=== PATIENT | female | born 1955 | race Hispanic/Latino ===

== ENCOUNTER → 2021-01-14 14:48 | Outpatient (CLI) | payer OTHER, SELFPAY ==
[2021-01-14 18:35] LABS: Alanine Aminotransferase 22 IU/L (<35); Albumin 3.7 g/dL (3.5-5.0); Albumin Globulin Ratio 1.2 (1.0-2.8); Alkaline Phosphatase 96 U/L (38-126); Aspartate Aminotransferase 22 IU/L (14-36); BUN Creatinine Ratio 27.4 (6-22); Bilirubin Total 0.4 mg/dL (0.2-1.3); Blood Urea Nitrogen 32 mg/dL (7-17); Calcium 9.6 mg/dL (8.4-10.2); Carbon Dioxide 25 mmol/L (22-32); Chloride 105 mmol/L (98-107); Estimated Glomerular Filt Rate 46.4 mL/min (>60); Globulin 3.1 g/dL (1.7-4.1); Glucose 145 mg/dL (80-110); HEMOLYSIS < 15 (0-50); Potassium 5.1 mmol/L (3.4-5.1); Sodium 138 mmol/L (137-145); Total Protein 6.8 g/dL (6.3-8.2)
[2021-01-14 18:40] LABS: Hemoglobin A1C% w Est Avg Glu 6.9 % (4.0-6.0)
== END ==
PROVIDERS: PCP Family Medicine; Visit Provider Family Medicine
DX: E11.9 Type 2 diabetes mellitus without complications (principal)
CPT/HCPCS: 80053; 83036

== ENCOUNTER → 2021-01-28 13:08 | Outpatient (CLI) | payer OTHER, SELFPAY ==
[2021-01-28 19:33] LABS: Alanine Aminotransferase 23 IU/L (<35); Albumin Globulin Ratio 1.3 (1.0-2.8); Alkaline Phosphatase 99 U/L (38-126); Aspartate Aminotransferase 25 IU/L (14-36); BUN Creatinine Ratio 19.6 (6-22); Bilirubin Total 0.4 mg/dL (0.2-1.3); Blood Urea Nitrogen 19 mg/dL (7-17); Calcium 9.6 mg/dL (8.4-10.2); Carbon Dioxide 28 mmol/L (22-32); Chloride 104 mmol/L (98-107); Estimated Glomerular Filt Rate 57.6 mL/min (>60); Glucose 98 mg/dL (80-110); HEMOLYSIS < 15 (0-50); Potassium 4.6 mmol/L (3.4-5.1); Sodium 139 mmol/L (137-145)
== END ==
PROVIDERS: PCP Family Medicine; Visit Provider Family Medicine
DX: I10 Essential (primary) hypertension (principal)
CPT/HCPCS: 80053

== ENCOUNTER → 2021-05-19 11:08 | Outpatient (CLI) | payer OTHER, SELFPAY ==
[2021-05-19 19:21] LABS: Add Manual Diff / Slide Review NO; Basophils Absolute Auto 100 /uL (0-100); Basophils Percent Auto 0.6 % (0-2); Eosinophils Absolute Auto 600 /uL (0-450); Eosinophils Percent Auto 6.7 % (2-4); Hematocrit 36.7 % (36-46); Hemoglobin 12.3 g/dL (12.0-16.0); Lymphocytes Absolute Auto 1600 /uL (1100-4500); Lymphocytes Percent Auto 17.8 % (25-40); Mean Corpuscular HGB Conc 33.6 % (30-36); Mean Corpuscular Hemoglobin 32.4 PG (26-34); Mean Corpuscular Volume 96.3 fL (80-100); Monocytes Absolute Auto 600 /uL (0-900); Neutrophils Absolute Auto 6300 /uL (1500-7000); Neutrophils Percent Auto 67.9 % (50-75); Platelet Count 373 X10^3/uL (150-400); Red Blood Cell Count 3.81 X10^6/uL (4.0-5.2); Red Cell Distribution Width 13.6 % (11.6-14.8); White Blood Cell Count 9.2 X10^3/uL (4.5-11.0)
[2021-05-19 19:24] LABS: Hemoglobin A1C% w Est Avg Glu 6.2 % (4.0-6.0)
[2021-05-19 19:47] LABS: Alanine Aminotransferase 19 IU/L (<35); Albumin 3.6 g/dL (3.5-5.0); Albumin Globulin Ratio 1.3 (1.0-2.8); Alkaline Phosphatase 94 U/L (38-126); Aspartate Aminotransferase 20 IU/L (14-36); BUN Creatinine Ratio 18.3 (6-22); Bilirubin Total 0.6 mg/dL (0.2-1.3); Blood Urea Nitrogen 20 mg/dL (7-17); Calcium 9.8 mg/dL (8.4-10.2); Carbon Dioxide 28 mmol/L (22-32); Chloride 103 mmol/L (98-107); Estimated Glomerular Filt Rate 50.4 mL/min (>60); Globulin 2.7 g/dL (1.7-4.1); Glucose 161 mg/dL (80-110); HEMOLYSIS < 15 (0-50); Potassium 4.6 mmol/L (3.4-5.1); Sodium 135 mmol/L (137-145); Total Protein 6.3 g/dL (6.3-8.2)
== END ==
PROVIDERS: PCP Family Medicine; Referring Provider Family Medicine; Visit Provider Family Medicine
DX: C53.9 Malignant neoplasm of cervix uteri, unspecified (principal); E11.9 Type 2 diabetes mellitus without complications
CPT/HCPCS: 80053; 83036; 85025

== ENCOUNTER → 2021-11-04 08:42 | Outpatient (CLI) | payer OTHER, SELFPAY ==
[2021-11-04 18:53] LABS: Creatinine Urine Random 120.6 mg/dL
[2021-11-04 18:57] LABS: Microalbumi Creatinin Ratio Ur 9.1 ug/mg CR (<30); Microalbumin Urine Random 1.1 mg/dL (0-1.6)
[2021-11-04 19:28] LABS: Add Manual Diff / Slide Review NO; Basophils Absolute Auto 100 /uL (0-100); Basophils Percent Auto 1.1 % (0-2); Eosinophils Absolute Auto 200 /uL (0-450); Eosinophils Percent Auto 3.2 % (2-4); Hematocrit 33.9 % (36-46); Hemoglobin 11.5 g/dL (12.0-16.0); Lymphocytes Absolute Auto 1300 /uL (1100-4500); Lymphocytes Percent Auto 17.9 % (25-40); Mean Corpuscular HGB Conc 33.8 % (30-36); Mean Corpuscular Hemoglobin 32.3 PG (26-34); Mean Corpuscular Volume 95.5 fL (80-100); Monocytes Absolute Auto 700 /uL (0-900); Monocytes Percent Auto 8.9 % (3-14); Neutrophils Absolute Auto 5200 /uL (1500-7000); Neutrophils Percent Auto 68.9 % (50-75); Platelet Count 332 X10^3/uL (150-400); Red Blood Cell Count 3.55 X10^6/uL (4.0-5.2); Red Cell Distribution Width 13.3 % (11.6-14.8); White Blood Cell Count 7.5 X10^3/uL (4.5-11.0)
[2021-11-04 19:36] LABS: Hemoglobin A1C% w Est Avg Glu 5.6 % (4.0-6.0)
[2021-11-04 19:43] LABS: Alanine Aminotransferase 23 IU/L (<35); Albumin Globulin Ratio 1.3 (1.0-2.8); Alkaline Phosphatase 114 U/L (38-126); Aspartate Aminotransferase 28 IU/L (14-36); Bilirubin Total 0.4 mg/dL (0.2-1.3); Blood Urea Nitrogen 26 mg/dL (7-17); Calcium 9.3 mg/dL (8.4-10.2); Carbon Dioxide 24 mmol/L (22-32); Chloride 103 mmol/L (98-107); Estimated Glomerular Filt Rate 59 mL/min (>60); Globulin 3.1 g/dL (1.7-4.1); Glucose 121 mg/dL (80-110); HEMOLYSIS < 15 (0-50); Potassium 4.7 mmol/L (3.4-5.1); Sodium 137 mmol/L (137-145); Total Protein 7.1 g/dL (6.3-8.2)
[2021-11-04 20:11] LABS: TSH w/ Reflex to FT4 2.13 uIU/mL (0.47-4.68)
== END ==
PROVIDERS: PCP Family Medicine; Visit Provider Family Medicine
DX: E11.22 Type 2 diabetes mellitus with diabetic chronic kidney disease (principal); I10 Essential (primary) hypertension; N18.1 Chronic kidney disease, stage 1; N18.2 Chronic kidney disease, stage 2 (mild)
CPT/HCPCS: 80053; 82043; 82570; 83036; 84443; 85025

== ENCOUNTER → 2021-12-12 10:37 | Outpatient (CLI) | payer OTHER, SELFPAY ==
[2021-12-12 20:07] LABS: HEMOLYSIS < 15 (0-50); Iron 90 ug/dL (37-170)
[2021-12-12 20:08] LABS: Add Manual Diff / Slide Review NO; Basophils Absolute Auto 100 /uL (0-100); Basophils Percent Auto 0.9 % (0-2); Eosinophils Absolute Auto 600 /uL (0-450); Eosinophils Percent Auto 7.9 % (2-4); Hematocrit 33.9 % (36-46); Hemoglobin 11.5 g/dL (12.0-16.0); Lymphocytes Absolute Auto 1500 /uL (1100-4500); Lymphocytes Percent Auto 20.1 % (25-40); Mean Corpuscular HGB Conc 33.8 % (30-36); Mean Corpuscular Hemoglobin 32.2 PG (26-34); Mean Corpuscular Volume 95.4 fL (80-100); Monocytes Absolute Auto 600 /uL (0-900); Monocytes Percent Auto 8.3 % (3-14); Neutrophils Absolute Auto 4700 /uL (1500-7000); Neutrophils Percent Auto 62.8 % (50-75); Platelet Count 316 X10^3/uL (150-400); Red Blood Cell Count 3.56 X10^6/uL (4.0-5.2); Red Cell Distribution Width 13.6 % (11.6-14.8); White Blood Cell Count 7.5 X10^3/uL (4.5-11.0)
[2021-12-12 20:19] LABS: Percent Iron Saturation 31 % (15-50); Total Iron Binding Capacity 290 ug/dL (265-497)
[2021-12-12 20:23] LABS: Transferrin 235 mg/dL (206-381)
[2021-12-12 20:25] LABS: Alanine Aminotransferase 22 IU/L (<35); Albumin 3.8 g/dL (3.5-5.0); Albumin Globulin Ratio 1.3 (1.0-2.8); Alkaline Phosphatase 107 U/L (38-126); Aspartate Aminotransferase 23 IU/L (14-36); BUN Creatinine Ratio 25.5 (6-22); Bilirubin Total 0.5 mg/dL (0.2-1.3); Blood Urea Nitrogen 26 mg/dL (7-17); Calcium 9.5 mg/dL (8.4-10.2); Carbon Dioxide 25 mmol/L (22-32); Chloride 102 mmol/L (98-107); Estimated Glomerular Filt Rate > 60 mL/min (>60); Globulin 2.9 g/dL (1.7-4.1); Glucose 167 mg/dL (80-110); HEMOLYSIS < 15 (0-50); Potassium 4.7 mmol/L (3.4-5.1); Sodium 135 mmol/L (137-145); Total Protein 6.7 g/dL (6.3-8.2)
[2021-12-12 20:26] LABS: Hemoglobin A1C% w Est Avg Glu 5.8 % (4.0-6.0)
[2021-12-12 21:19] LABS: Vitamin B12 > 1000 pg/mL (239-931)
== END ==
PROVIDERS: PCP Family Medicine; Visit Provider Family Medicine
DX: D64.9 Anemia, unspecified (principal); N18.9 Chronic kidney disease, unspecified
CPT/HCPCS: 80053; 82607; 83036; 83540; 83550; 85025

== ENCOUNTER → 2021-12-15 09:58 | Outpatient (CLI) | payer OTHER, SELFPAY ==
[2021-12-20 13:35] LABS: Fecal Immunochemical Test Negative (Negative)
== END ==
PROVIDERS: PCP Family Medicine; Visit Provider Family Medicine
DX: D64.9 Anemia, unspecified (principal); N18.9 Chronic kidney disease, unspecified
CPT/HCPCS: 82274

== ENCOUNTER → 2022-05-25 14:03 | Outpatient (CLI) | payer MEDICARE, SELFPAY ==
[2022-05-25 20:26] LABS: Alanine Aminotransferase 28 IU/L (<35); Alkaline Phosphatase 127 U/L (38-126); Aspartate Aminotransferase 26 IU/L (14-36); BUN Creatinine Ratio 23.6 (6-22); Bilirubin Total 0.5 mg/dL (0.2-1.3); Blood Urea Nitrogen 25 mg/dL (7-17); Calcium 9.7 mg/dL (8.4-10.2); Carbon Dioxide 23 mmol/L (22-32); Chloride 99 mmol/L (98-107); Estimated Glomerular Filt Rate 58 mL/min (>60); Glucose 182 mg/dL (80-110); Potassium 4.6 mmol/L (3.4-5.1); Sodium 135 mmol/L (137-145); Total Protein 7.2 g/dL (6.3-8.2)
[2022-05-25 20:28] LABS: HEMOLYSIS < 15 (0-50); Iron 86 ug/dL (37-170)
[2022-05-25 20:31] LABS: Add Manual Diff / Slide Review NO; Basophils Absolute Auto 100 /uL (0-100); Basophils Percent Auto 1.2 % (0-2); Eosinophils Absolute Auto 200 /uL (0-450); Eosinophils Percent Auto 2.6 % (2-4); Hematocrit 35.4 % (36-46); Hemoglobin 11.7 g/dL (12.0-16.0); Hemoglobin A1C% w Est Avg Glu 7.2 % (4.0-6.0); Lymphocytes Absolute Auto 1800 /uL (1100-4500); Lymphocytes Percent Auto 20.2 % (25-40); Mean Corpuscular Hemoglobin 32.1 PG (26-34); Mean Corpuscular Volume 97.1 fL (80-100); Monocytes Absolute Auto 700 /uL (0-900); Monocytes Percent Auto 7.7 % (3-14); Neutrophils Absolute Auto 6100 /uL (1500-7000); Neutrophils Percent Auto 68.3 % (50-75); Platelet Count 355 X10^3/uL (150-400); Red Blood Cell Count 3.64 X10^6/uL (4.0-5.2); Red Cell Distribution Width 13.6 % (11.6-14.8); White Blood Cell Count 8.9 X10^3/uL (4.5-11.0)
[2022-05-25 20:40] LABS: Percent Iron Saturation 30 % (15-50); Total Iron Binding Capacity 286 ug/dL (265-497); Transferrin 233 mg/dL (206-381)
[2022-05-25 21:00] LABS: TSH w/ Reflex to FT4 1.07 uIU/mL (0.47-4.68)
[2022-05-26 16:57] LABS: Albumin 4.2 g/dL (3.5-5.0); Albumin Globulin Ratio 1.4 (1.0-2.8); HEMOLYSIS < 15 (0-50)
== END ==
PROVIDERS: PCP Family Medicine; Visit Provider Family Medicine
DX: E11.9 Type 2 diabetes mellitus without complications (principal); I10 Essential (primary) hypertension
CPT/HCPCS: 80053; 83036; 83540; 83550; 84443; 85025

== ENCOUNTER 2022-08-10 13:00 | Day surgery (SDC) | payer MEDICARE, SELFPAY ==
--- NOTE | 2022-08-10 | PATH_ITS ---
[facility] Accession Number: [id number] No. of containers..05 Tissue . 01 Material submitted: . PART A: duodenum - DUODEMUN BIOPSY PART B: pylorus - PYLORUS BIOPSY PART C: esophagus, E-G Junction - GE JUNCTION BIOPSY PART D: colon - DESCENDING COLON POLYP PART E: colon - SIGMOID COLON POLYP . 01 Diagnosis: A. Duodenum, Biopsy: Duodenal mucosa with focal foveolar metaplasia, consistent with peptic duodenitis. Negative for active inflammation, features of sprue, dysplasia or malignancy. . B. Pylorus, Biopsy: Gastric antral mucosa with no diagnostic abnormality. No evidence of Helicobacter organisms on H/E stain. Negative for intestinal metaplasia. Negative for dysplasia or malignancy. . C. Gastroesophageal Junction, Biopsy: Squamocolumnar junctional mucosa with focal specialized intestinal metaplasia; please see comment. Negative for dysplasia or malignancy. . D. Descending Colon Polyp: Tubular adenoma. . E. Sigmoid Colon Polyp: Hyperplastic polyp. [facility] 08/15/2022 1557 Local . 01 Comment: C. The findings in the gastroesophageal junction biopsy would be consistent with Rollins's esophagus in the appropriate endoscopic setting. . 01 Electronically signed: . Eldon Garcia MD, PhD, Pathologist NPI- [id number] . 01 Gross description: . Part A: DUODEMUN BIOPSY: Received in formalin is 1 fragment(s) of lugo, soft tissue measuring 0.1 x 0.1 x 0.1 cm submitted entirely in 1 cassette(s) Part B: PYLORUS BIOPSY: Received in formalin is 1 fragment(s) of lugo, soft tissue measuring 0.2 x 0.2 x 0.1 cm submitted entirely in 1 cassette(s) Part C: GE JUNCTION BIOPSY: Received in formalin are 3 fragment(s) of lugo, soft tissue measuring 0.1 x 0.1 x 0.1 cm in aggregate submitted entirely in 1 cassette(s) Part D: DESCENDING COLON POLYP: Received in formalin is 1 fragment(s) of lugo, soft tissue measuring 0.2 x 0.2 x 0.2 cm submitted entirely in 1 cassette(s) Part E: SIGMOID COLON POLYP: Received in formalin are 3 fragment(s) of lugo, soft tissue measuring 0.1 x 0.1 x 0.1 cm to 0.2 x 0.2 x 0.2 cm submitted entirely in 1 cassette(s) /[facility] 08/14/2022 1916 Local . 01 Pathologist provided ICD-10: K29.80, K22.70, D12.4 . 01 CPT . 428181, 220986, 457295, 437205, 119145 Specimen Comment: A courtesy copy of this report has been sent to [facility] Performed at: 01 [facility] [address] [place] [address] Suite [facility], [place], [place] [id number] MD Vishnu Arthur MD Phone: [phone]
[2022-08-10 13:11] VITALS: BMI 48.0
[2022-08-10 13:28] VITALS: BP 145/73; PULSE 75; RESP 18; TEMP 36.4; O2SAT 98
[2022-08-10] MEDS: LACTATED RINGERS 1,000 ML 42 ML IV (13:31)
--- NOTE | 2022-08-10 14:01 | PM.HP.1 ---
History of Present Illness History of Present Illness Date Patient Seen: 08/10/22 Time Patient Seen: 14:02 Chief complaint: EGD/Colonoscopy w/poss bx Narrative: Mrs. Murphy presents today for both a colonoscopy and an EGD. Her last colonoscope she believes is about maybe 10 years ago and she denies any bleeding or changes bowel habits that are concerning. She has a personal history of endometrial cancer but no family history of colon cancer. She is also requesting an EGD because she has a low iron and anemia and she had a conversation with her assistant executive housekeeper about a trying to identify a GI source and she would like to proceed. She denies any upper GI symptoms denies heartburn GERD reflux swallowing issues or epigastric pain. [facility] Medical History (Updated 07/31/22 @ 08:44 by Alannah Dior MD) Anemia Atrial fibrillation Chronic kidney disease Chronic knee pain Fatigue History of uterine cancer Hypertension Insomnia Knee pain Morbid obesity with BMI of 50.0-59.9, adult Obstructive sleep apnea of adult Type 2 diabetes mellitus Surgical History History of hysterectomy with oophorectomy Status post delivery Status post delivery Family History Father Age: 90 Prostate cancer Esophageal cancer Heart disease Hypertension Social History household members: spouse Smoking Status: Never smoker Meds Home Medications and Allergies Home Medications Medication Instructions Recorded Confirmed Type [facility] [place] 0 dev TID ##100 01/25/16 07/27/22 Rx ferrous gluconate 324 mg (37.5 mg 324 mg PO DAILY #90 tabs 12/13/21 07/27/22 Rx iron) tablet lisinopril 20 1 tab PO DAILY #90 tabs 01/18/22 07/27/22 Rx mg-hydrochlorothiazide 12.5 mg tablet metformin 1,000 mg tablet,extended 1,000 mg PO BID #180 tabs 01/23/22 07/27/22 Rx release 24hr amlodipine 2.5 mg tablet 2.5 mg PO BEDTIME #90 tabs 02/01/22 07/27/22 Rx liraglutide 0.6 mg/0.1 mL (18 mg/3 1.8 mg (0.3 mL) SUBCUT DAILY #9 mL 06/22/22 07/27/22 Rx mL) subcutaneous pen injector (Victoza 3-Theo) insulin glargine U-300 conc 300 35 unit SUBCUT 08/10/22 History unit/mL (3 mL) subcutaneous pen (Toujeo Max U-300 SoloStar) liraglutide 0.6 mg/0.1 mL (18 mg/3 mg SUBCUT 08/10/22 History mL) subcutaneous pen injector (Victoza 3-Theo) Allergies Allergy/AdvReac Type Severity Reaction Status Date / Time No Known Drug Allergies Allergy Verified 07/27/22 11:20 Exam Vital Signs (past 8 hours): - 08/10/22 13:28 Temperature 97.6 F Pulse Rate 75 Respiratory Rate 18 Blood Pressure 145/73 H Pulse Oximetry 98 Oxygen Delivery Method Room Air Oxygen Delivery Method Room Air Const General: cooperative, healthy appearing and comfortable HENMA Head: normal to inspection Eyes General: appearance normal, both eyes and all related structures Resp Effort & Inspection: normal respiratory effort and able to speak in complete sentences GI Inspection: obesity Palpation: soft and No tender Assessment & Plan Assessment & Plan narrative: Presents today for an EGD and colonoscopy for anemia I discussed the risks benefits and alternatives including but not limited to perforation of the colon, injury to the esophagus, failure of making a diagnosis and an incomplete exam she fully understands these risks and would like to proceed.
[2022-08-10 15:45] VITALS: BP 114/60; PULSE 65; RESP 16; TEMP 36.2; O2SAT 98
--- NOTE | 2022-08-10 15:46 | PM.OP.COLON ---
Operative Date/Time/Diagnoses Date of procedure: 08/10/22 Time of procedure: 15:46 Procedure & Clinicians Study performed: EGD and colonoscopy with biopsies Same procedure as scheduled: Yes Indications: Anemia Surgeon: Terrie [place] Procedure Notes Procedure in detail: Patient was taken to the endoscopy suite and placed in a left lateral decubitus position. A time-out was performed. And conscious sedation with the anesthesia provider was induced. A bite block was placed and the EGD scope was introduced into the mouth down the esophagus and into the stomach. There was some mild looking gastritis especially in the pyloric region. The duodenum was intubated and there were a few small duodenal polyps which were biopsied. Additional biopsies were taken of the pyloric region and also a photograph and biopsies of the GE junction were taken. It did seem like there was some circumferential changes of the esophagus at the GE junction. The scope was withdrawn. Digital rectal exam was performed no masses or strictures. The colonoscope was introduced into the anal canal and advanced through to the cecum. The prep was poor a Pierson bowel prep score of 1. Photographs were obtained of the quality of prep. There were a large amount of diverticula seen in the sigmoid colon. The colonoscope go was withdrawn slowly and a descending colon polyp was identified and removed with the biopsy forceps and a sigmoid colon polyp was identified and biopsied. This area in fact did not have a typical polyp look and though the mucosa was protruding the mucosa overlying was smooth and did not have a polypoid looking quality to it. However due to the fact that it was on the opposite side of a fold I struggled and could not remove the lesion in total. I did take some very good biopsies however. Total withdrawal time was 20 minutes. Findings: divertiulosis and polyp(s) Specimen(s): other (1. Duodenum 2. Pylorus 3. GE junction 4. Descending colon polyp 5. Sigmoid colon polyp) Complications: none
[2022-08-10 16:03] VITALS: BP 125/75; PULSE 64; RESP 16; TEMP 36.8; O2SAT 97
[2022-08-10 16:12] VITALS: BP 147/67; PULSE 65; RESP 16; O2SAT 98
[2022-08-10 16:20] VITALS: BP 145/70; PULSE 77; RESP 16; TEMP 36.3; O2SAT 98
== END 2022-08-10 16:46 | disposition home or self-care (01) ==
PROVIDERS: PCP Family Medicine; Referring Provider Surgery; Visit Provider Surgery
PROC: 0DJ08ZZ Inspection of Upper Intestinal Tract, Via Natural or Artificial Opening Endoscopic (ICD-10-PCS; CPT 43235; principal; 2022-08-10 14:15)
PROC: 0DJD8ZZ Inspection of Lower Intestinal Tract, Via Natural or Artificial Opening Endoscopic (ICD-10-PCS; CPT 45378; 2022-08-10 14:15)
DX: D64.9 Anemia, unspecified (principal); K29.80 Duodenitis without bleeding; D12.2 Benign neoplasm of ascending colon; K22.70 Barrett's esophagus without dysplasia
CPT/HCPCS: 45380; 43239; J2704

== ENCOUNTER → 2022-08-30 09:11 | Outpatient (CLI) | payer MEDICARE, SELFPAY ==
[2022-08-30 19:24] LABS: Add Manual Diff / Slide Review NO; Basophils Absolute Auto 100 /uL (0-100); Basophils Percent Auto 1.1 % (0-2); Eosinophils Absolute Auto 200 /uL (0-450); Eosinophils Percent Auto 3.3 % (2-4); Hematocrit 32.7 % (36-46); Lymphocytes Absolute Auto 1500 /uL (1100-4500); Lymphocytes Percent Auto 21.5 % (25-40); Mean Corpuscular HGB Conc 33.8 % (30-36); Mean Corpuscular Hemoglobin 32.9 PG (26-34); Mean Corpuscular Volume 97.4 fL (80-100); Monocytes Absolute Auto 600 /uL (0-900); Monocytes Percent Auto 9.3 % (3-14); Neutrophils Absolute Auto 4500 /uL (1500-7000); Neutrophils Percent Auto 64.8 % (50-75); Platelet Count 334 X10^3/uL (150-400); Red Blood Cell Count 3.35 X10^6/uL (4.0-5.2); Red Cell Distribution Width 13.9 % (11.6-14.8); White Blood Cell Count 6.9 X10^3/uL (4.5-11.0)
[2022-08-30 19:50] LABS: BUN Creatinine Ratio 22.1 (6-22); Blood Urea Nitrogen 23 mg/dL (7-17); Calcium 9.3 mg/dL (8.4-10.2); Carbon Dioxide 25 mmol/L (22-32); Chloride 101 mmol/L (98-107); Cholesterol 228 mg/dL (140-199); Estimated Glomerular Filt Rate 59 mL/min (>60); Glucose 177 mg/dL (80-110); HDL Cholesterol 72 mg/dL (40-60); HEMOLYSIS < 15 (0-50); LDL Cholesterol Calculated 125 mg/dL (<100); Potassium 5.1 mmol/L (3.4-5.1); Sodium 136 mmol/L (137-145); Triglycerides 155 mg/dL (35-150)
[2022-08-30 20:53] LABS: Folate 9.1 ng/mL (2.76-20.0)
[2022-09-01 06:08] LABS: x Labcorp Estim. Avg Glu (eAG) 148 mg/dL (.); x Labcorp Hemoglobin A1c 6.8 % (4.8-5.6)
== END ==
PROVIDERS: PCP Family Medicine; Visit Provider Family Medicine
DX: E11.9 Type 2 diabetes mellitus without complications (principal); D64.9 Anemia, unspecified; I10 Essential (primary) hypertension; N18.9 Chronic kidney disease, unspecified; Z13.6 Encounter for screening for cardiovascular disorders
CPT/HCPCS: 80048; 80061; 82746; 83036; 85025

== ENCOUNTER → 2022-09-08 11:01 | Outpatient (CLI) | payer MEDICARE, SELFPAY ==
[2022-09-08 12:15] LABS: Add Manual Diff / Slide Review NO; Basophils Absolute Auto 100 /uL (0-100); Basophils Percent Auto 1.3 % (0-2); Eosinophils Absolute Auto 200 /uL (0-450); Eosinophils Percent Auto 2.8 % (2-4); Hematocrit 33.9 % (36-46); Hemoglobin 11.6 g/dL (12.0-16.0); Lymphocytes Absolute Auto 1500 /uL (1100-4500); Lymphocytes Percent Auto 19.9 % (25-40); Mean Corpuscular HGB Conc 34.1 % (30-36); Mean Corpuscular Hemoglobin 32.8 PG (26-34); Mean Corpuscular Volume 96.2 fL (80-100); Monocytes Absolute Auto 700 /uL (0-900); Monocytes Percent Auto 8.7 % (3-14); Neutrophils Absolute Auto 5200 /uL (1500-7000); Neutrophils Percent Auto 67.3 % (50-75); Platelet Count 327 X10^3/uL (150-400); Red Blood Cell Count 3.53 X10^6/uL (4.0-5.2); Red Cell Distribution Width 14.2 % (11.6-14.8); White Blood Cell Count 7.7 X10^3/uL (4.5-11.0)
[2022-09-08 12:16] LABS: Reticulocyte Count, Percent 1.9 % (1.1-2.6)
[2022-09-08 12:43] LABS: Lactate Dehydrogenase 143 U/L (120-246)
[2022-09-11 08:49] LABS: Haptoglobin 196 mg/dL (37-355)
== END ==
PROVIDERS: PCP Family Medicine; Referring Provider Family Medicine; Visit Provider Family Medicine
DX: D64.9 Anemia, unspecified (principal)
CPT/HCPCS: 36415; 83010; 83615; 85025; 85045

== ENCOUNTER → 2022-12-08 13:35 | Outpatient (CLI) | payer MEDICARE, SELFPAY ==
[2022-12-08 19:19] LABS: Creatinine Urine Random 142.5 mg/dL
[2022-12-08 19:25] LABS: Microalbumin Urine Random < 0.6 mg/dL (0-1.6)
== END ==
PROVIDERS: PCP Family Medicine; Referring Provider Family Medicine; Visit Provider Family Medicine
DX: E11.69 Type 2 diabetes mellitus with other specified complication (principal); E78.5 Hyperlipidemia, unspecified; I10 Essential (primary) hypertension; Z12.9 Encounter for screening for malignant neoplasm, site unspecified
CPT/HCPCS: 82043; 82570

== ENCOUNTER → 2023-03-27 11:08 | Outpatient (CLI) | payer MEDICARE, SELFPAY ==
[2023-03-27 19:23] LABS: Hemoglobin A1C% w Est Avg Glu 5.9 % (4.0-6.0)
[2023-03-27 19:28] LABS: BUN Creatinine Ratio 21.9 (6-22); Blood Urea Nitrogen 21 mg/dL (7-17); Calcium 10.1 mg/dL (8.4-10.2); Carbon Dioxide 27 mmol/L (22-32); Chloride 103 mmol/L (98-107); Estimated Glomerular Filt Rate > 60 mL/min (>60); Glucose 103 mg/dL (80-110); HEMOLYSIS < 15 (0-50); Potassium 4.6 mmol/L (3.4-5.1); Sodium 136 mmol/L (137-145)
[2023-03-27 19:36] LABS: Add Manual Diff / Slide Review NO; Basophils Absolute Auto 100 /uL (0-100); Eosinophils Absolute Auto 1100 /uL (0-450); Eosinophils Percent Auto 15.7 % (2-4); Hematocrit 33.4 % (36-46); Hemoglobin 11.4 g/dL (12.0-16.0); Lymphocytes Absolute Auto 1500 /uL (1100-4500); Lymphocytes Percent Auto 21.8 % (25-40); Mean Corpuscular HGB Conc 34.1 % (30-36); Mean Corpuscular Hemoglobin 32.6 PG (26-34); Mean Corpuscular Volume 95.7 fL (80-100); Monocytes Absolute Auto 700 /uL (0-900); Monocytes Percent Auto 9.2 % (3-14); Neutrophils Absolute Auto 3700 /uL (1500-7000); Neutrophils Percent Auto 52.3 % (50-75); Platelet Count 356 X10^3/uL (150-400); Red Blood Cell Count 3.49 X10^6/uL (4.0-5.2); Red Cell Distribution Width 13.7 % (11.6-14.8); White Blood Cell Count 7.1 X10^3/uL (4.5-11.0)
[2023-03-27 20:13] LABS: Appearance Urine UA CLEAR; Bilirubin Urine UA NEGATIVE (NEGATIVE); Color Urine UA YELLOW; Glucose Urine UA NEGATIVE (Negative); Ketones Urine UA NEGATIVE (NEGATIVE); Leukocyte Esterase Urine UA 1+ (NEGATIVE); Nitrite Urine UA NEGATIVE (Negative); Occult Blood Urine UA NEGATIVE (Negative); Protein Urine UA NEGATIVE (Negative); Specific Gravity Urine UA >=1.030 (1.000-1.035); Urobilinogen Urine UA 0.2 E.U./dL (0.2)
[2023-03-27 20:24] LABS: Bacteria Urine Occasional (0-1); Culture Indicated Urine Specimen Cultured; RBC Urine 0-1/HPF (0-5/HPF); Squamous Epithelial Cell Urine None Seen (0-5/HPF); WBC Urine 0-1/HPF (0-5/HPF)
== END ==
PROVIDERS: PCP Family Medicine; Visit Provider Orthopaedic Surgery
DX: Z01.818 Encounter for other preprocedural examination (principal); Z01.812 Encounter for preprocedural laboratory examination; R73.9 Hyperglycemia, unspecified; N39.0 Urinary tract infection, site not specified
CPT/HCPCS: 80048; 81001; 83036; 85025; 87086

== ENCOUNTER 2023-06-21 06:16 | Day surgery (SDC) | payer MEDICARE, SELFPAY ==
[2023-06-12 12:48] VITALS: BMI 44.6
[2023-06-21] VITALS (16 sets, daily range): BP systolic 119–154; BP diastolic 54–74; PULSE 68–94; RESP 12–21; TEMP 35.4–36.7; O2SAT 90–99; BMI 44.6
--- NOTE | 2023-06-21 06:00 | DI.RAD.S_ITS ---
PROCEDURE: XR KNEE LT 1TO2V INDICATIONS: TKA TECHNIQUE: 2 view(s) of the knee acquired. COMPARISON: [facility] ([facility]), SKIP, XR KNEE RT 3V, 01/21/2021, 11:35. FINDINGS: Bones: Patient is status post knee joint arthroplasty. Hardware components are in expected positions. Visualized bony structures are intact. Soft tissues: Overlying postoperative changes are noted. IMPRESSION: Expected post-operative appearance of a knee arthroplasty. Dictated by: J Luis Lam M.D. on 06/21/2023 at 11:35 Approved by: J Luis Lam M.D. on 06/21/2023 at 11:36
[2023-06-21] MEDS: ACETAMINOPHEN 325 MG TABLET 975 MG PO (06:53)
[2023-06-21] MEDS: CELECOXIB 200 MG CAPSULE PO (06:54)
[2023-06-21] MEDS: VANCOMYCIN 1,000 MG/200 ML PIGGYBACK 200 MG IV (06:54)
[2023-06-21] MEDS: LACTATED RINGERS 1,000 ML 42 ML IV (06:54)
--- NOTE | 2023-06-21 07:28 | SUR.OPER ---
Supine on padded OR bed. Pillow under head, arms secured on padded armboards <90 degree abduction. Safety belt across torso. Non-operative leg secured with tape over blanket over lower leg. Operative leg secured in DeMayo/Julian/Nathe positioner. Foam padded brace at thigh of operative leg.
--- NOTE | 2023-06-21 07:51 | PM.PREOP ---
Pre-operative Note Interval Note History & Physical reviewed/Exam performed by Physician: Yes Changes to H&P: No
--- NOTE | 2023-06-21 07:53 | P.OP_ITS ---
Operative Date/Time/Diagnoses Date of procedure: 06/21/23 Time of procedure: 08:00 Pre-op diagnosis: left knee OA Post-op diagnosis: same Procedure & Clinicians Procedure: Left total knee arthroplasty with Cori Same procedure as scheduled: Yes Indications: The patient has had progressively worsening left knee pain with radiographic changes consistent with arthritis. Non-operative management has failed and the patient has requested total knee replacement. The risks, benefits and alternatives to surgery were discussed with the patient prior to proceeding. Risks discussed included, but were not limited to, failure to relieve pain, stiffness, infection, nerve damage, deep venous thrombosis, pulmonary embolism, stroke, coma, heart attack, permanent paralysis and , as well as the potential need for eventual revision of the prosthetic. Surgeon: Leticia Knowles Field Laboratory Operator: Ap Dobson Anesthesia Type: General and Spinal Operative Notes Findings: Severe left knee OA, adequate stability, adequate Closure Type: primary Specimen(s): none sent Prosthetic devices, grafts, tissues, transplants, or devices: Left total knee journey BCS 2, size 5 femur, size 4 tibia, 10 mm polyethylene, patella 35 x 7-1/2 Estimated Blood Loss (mL): 250 Blood products transfused: none Tourniquet time (min): 94 Procedure in detail: The patient was seen in the pre-operative area, where the patient identified the left knee as the operative site and this was marked with my initials. The patient received pre-operative antibiotics, and was taken to the operating room and placed on the operative table in the supine position. After satisfactory anesthesia, a timekeeping supervisor out was performed. The left leg was encircled with a tourniquet about the proximal thigh, and the leg was prepared from the toes to the tourniquet with ChloroPrep in the usual fashion and draped through sterile drapes. The leg was elevated and exsanguinated with Eschmark bandage and the tourniquet inflated to 300 mmHg pressure. A PA was used during the procedure and was essential for intraoperative positioning of the knee and safe implantation of the components. They were also helpful and visualization for hemostasis. The knee was approached through an approximately 22 cm incision centered over the patella and carried into the knee through a medial parapatellar arthrotomy. Portion of the medial and lateral meniscus was resected. Soft tissue was carefully mobilized around the patella the patella was measured with a caliper. Bone was resected from the patella and the patellar height was reconstituted with up an appropriate sized patellar component. A cover was then placed on the patella. A small amount of additional medial and lateral meniscus was resected. Pins were placed in the femur for robotic assisted navigation with Cori. The tibial guide was then pinned to the tibia. The femoral and tibial side were carefully mapped and stressed and nonstress range of motion were checked. A plan was taken and developed in order to optimize stability of the knee. The appropriate size femoral guide was placed on the distal femur and finishing cuts were made. There was no evidence of notching. The anterior, posterior and chamfer cuts were then made. The posterior osteophytes and soft tissues were then removed. The posterior capsule was injected with part of a mixture of 60 ml 0.25% Marcaine mixed with 20 ml Exparel for post operative pain control. The remainder of this mixture was injected into the capsule and subcutaneous tissues during cement curing. The tibia guide was carefully adjusted and navigated. The tibia was then resected without difficulty. The rotation was assessed. The patient was placed in extension residual medial and lateral meniscus as well as any residual bone was carefully resected. [No] additional tibia was resected. Hemostasis was achieved especially posteriorly. Additional local was injected into the posterior capsule. The femoral component was trial was placed and the notch was finished. Trial tibial and femoral components were then placed and the knee placed through a range of motion. Range of motion was [0-130], with good stability throughout the range. The trials were then removed, and the tibia was finished. The bone was prepared with pulsatile lavage, and dried with a sponge. Cement was applied and the final prosthetics placed. Excess cement was removed during and after cement curing. A brief Betadine soak was performed. After confirming there was no extruded cement posteriorly, the final tibial insert was placed. The knee was copiously irrigated and the tourniquet deflated. Hemostasis was obtained with the Bovie cautery. The capsule was closed with interrupted Vicryl suture. The subcutaneous layer was closed with barbed sutures, and the skin with a running 3-0 V-Lock suture and skin taj. A marbella dressing was applied and the patient was taken to recovery having tolerated the procedure well. Complications: none Post-operative Condition: stable Disposition: Acute Care Plan for aftercare: The patient will be maintained on a standard total knee replacement protocol with weight bearing as tolerated. The patient will receive aspirin and sequential compression devices for DVT prophylaxis. The patient will be discharged home when safe for the home environment.
[2023-06-21] MEDS: CEFAZOLIN 2 GM/100 ML PREMIX 100 ML IV ×2 (08:16→17:18)
[2023-06-21] MEDS: BUPIVACAINE 0.25% (PF) 60 ML, EPINEPHrine 0.3 MG INJ (08:38)
[2023-06-21] MEDS: TRANEXAMIC ACID 1,000 MG VIAL 1000 MG INJ ×2 (08:38→10:15)
[2023-06-21] MEDS: BUPIVACAINE LIPOSOME 266 MG/20 ML VIAL INJ (08:38)
[2023-06-21] MEDS: ONDANSETRON 4 MG/2 ML INJ IV (10:37)
[2023-06-21] MEDS: ACETAMINOPHEN 325 MG TABLET 650 MG PO ×3 (12:07→23:13)
[2023-06-21] MEDS: LACTATED RINGERS 1,000 ML 100 ML IV (12:07)
[2023-06-21] MEDS: IBUPROFEN 400 MG TABLET PO ×3 (12:08→18:49)
[2023-06-21] MEDS: OXYCODONE IR 5 MG TABLET PO ×4 (12:17→23:14)
--- NOTE | 2023-06-21 16:38 | OT.IP.EVAL ---
Current Diagnoses Unilateral primary osteoarthritis, left knee (06/21/23) Surgery Performed Operation Date: 06/21/23 07:45 Actual Procedures p Total Knee Arthroplasty - Robot(Left) - Leticia Knowles MD Past Medical History (Last Reviewed 06/21/23 @ 06:47 by Mana Perez, RN) Anemia Atrial fibrillation Chronic kidney disease Chronic knee pain Endometrial cancer Fatigue History of cardioversion History of COVID-19 (2020) History of uterine cancer Hypertension Insomnia Knee pain Obesity, Class III, BMI 40-49.9 (morbid obesity) Obstructive sleep apnea of adult Osteoarthritis Type 2 diabetes mellitus Surgical History (Last Reviewed 06/21/23 @ 06:47 by Mana Perez, RN) History of esophagogastroduodenoscopy (EGD) (08/10/22) History of hysterectomy with oophorectomy Hx of colonoscopy (08/10/22) Status post delivery Status post delivery Occupational Therapy Inpatient Evaluation/Re-Eval M1 PT/OT-IP Prior Functional Status Start: 06/21/23 16:44 Freq: NEEDED Status: Active Protocol: Document 06/21/23 16:45 [facility] (Rec: 06/21/23 17:02 [facility] [id number]) Medical Review Prior Functional Status Communication Independent Mobility and Gait Able to walk without a device but limited per pt. Activities of Daily Living and IADL's Pt had pain during ADl and IADL needs. Prior Functional Level (Other details) Pt's daughter to be staying with her and her to assist her at home. Social History Household Members spouse Living Arrangements House Number of Floors (Floors) Two Floors Number of Stairs To Enter/Railing? Pt has 2 steps with left rail to get into the house and can stay on the main level. Home Environment High Toilet,Walk in Shower, Built-In Shower Seat Home Equipment Front Wheel Walker,Quad Cane, Bedside Commode,Hand Held Shower,Grab Bars In Shower Additional Social History Comment Pt has an adjustable bed. M2 OT-IP Current Condition Start: 06/21/23 16:44 Freq: Status: Active Protocol: Document 06/21/23 16:45 [facility] (Rec: 06/21/23 17:02 [facility] [id number]) Occupational Therapy Current Condition Current Condition Evaluation Date 06/21/23 Treatment Diagnosis S/P L TKA Diagnosis Onset Date 06/20/23 M3 OT- IP Subjective and Pain Start: 06/21/23 16:44 Freq: Status: Active Protocol: Document 06/21/23 16:45 [facility] (Rec: 06/21/23 17:02 [facility] [id number]) OT- Subjective Occupational Therapy Visit Type Type Initial Evaluation Visit Start Time 16:00 Visit Stop Time 16:38 Occupational Therapy Visit Comments Patient Comments Pt agreed to get up to the recliner. Patient/Caregiver Goals TO go home. OT Pain Assessment Pain When Pain Assessed During Mobility Pain Present Pain Present Pain Reported Location Right Knee Intensity 5 Scale Used Numeric (0 - 10) M4 OT- IP ADL's Start: 06/21/23 16:44 Freq: Status: Active Protocol: Document 06/21/23 16:45 [facility] (Rec: 06/21/23 17:02 [facility] [id number]) OT NUI-Ambu-Dzisamq General Evaluation Self-Feeding Ability Independent OT ADL-Grooming Comments OT Grooming Comments Not performed. OT ADL-Oral Care Comments Oral Care Comments NOt performed. OT ADL-Dressing Comments OT Dressing Comments Pt not able to reach to irene/ doff her socks and able to show pt use of property and equipment clerk and sock aid. OT ADL-Toileting Comments OT Toileting Comments At this time as pt is unsteady on her feet, best to use the BSC. Educated pt to be mindful of her knee position during ADL needs. OT ADL-Bathing Suggested use of pads, wipes and BSC and BSC next to the bed initially for safety. Comments OT Bathing Comments Not performed. Pt states has a built in seat but would probably benefit from a shower chair with arms. M5 OT- IP IADL's Start: 06/21/23 16:44 Freq: Status: Active Protocol: Document 06/21/23 16:45 [facility] (Rec: 06/21/23 17:02 [facility] [id number]) OT-Instrumental Activities of Daily Living Deficits IADL Deficits Identified Deficits Home Safety Awareness Awareness of Need for Assistance at Home Good Awareness Ability to Problem Solve Emergency Able to Problem Solve Situations Meal Preparation Meal Preparation Caregiver Provides Assist Elastic Attacher Coverstitch Elastic Attacher Coverstitch Caregiver Provides Assist M6 OT- IP Functional Cognition Start: 06/21/23 16:44 Freq: Status: Active Protocol: Document 06/21/23 16:45 [facility] (Rec: 06/21/23 17:02 [facility] [id number]) Cognitive Factors Limiting Selfcare Function Cognitive Ability Level of Alertness Alert Patient Orientation Name,Age,Birthday,Month,Date, Year,Day of Week,Place, Situation Attention Span Ability Capable of Focused Attention, Capable of Sustained Attention Ability to Follow Commands Able to Follow Multi-Step Commands Cognitive Comments Cognitive Assessment Comments Pt is intact. OT- Vision and Hearing OT- Hearing Assessment OT- Hearing Assessment WFL OT- Vision Assessment Visual Acuity Glasses For Reading Visual Attentiveness WFL Occular Pursuits WFL M7 OT- IP Mobility and Balance Start: 06/21/23 16:44 Freq: Status: Active Protocol: Document 06/21/23 16:45 [facility] (Rec: 06/21/23 17:02 [facility] [id number]) OT- Bed Mobility Assessment Supine to Sit Supine to Sit Assist Standby Assistance,Head of Bed Elevated OT-Transfer Assessment Sit to and From Stand Sit to and from Stand Moderate Assistance Transfers Transfer Ability Moderate Assistance Technique Transfer Destination Bed,Chair Transfer Technique Stand Step Pivot Devices Transfer Assistive Devices Gait Belt,Front Wheeled Walker Comments Mobility Comments Pt needing to use her hands to help lift her RLE to the edge of the bed. BP supine 130/55 , sitting 130/50 and after standing feeling a bit woozy and able to transfer to the recliner with MODA to stand and to assist for balance to get to the recliner. Pt's bp dropped to 114/48- nursing notified. OT- Gait Assessment Assistive Devices Assistive Device Gait Belt,Front Wheeled Walker OT- Balance Assessment Sitting Balance and Reactions Static Sitting Balance Ability Normal Dynamic Sitting Balance Ability Good Standing Balance and Reactions Static Standing Balance Ability Fair Dynamic Standing Balance Ability Poor M8 OT- IP Objective Assessments Start: 06/21/23 16:44 Freq: Status: Active Protocol: Document 06/21/23 16:45 [facility] (Rec: 06/21/23 17:02 [facility] [id number]) OT Strength Upper Extremity Strength Assessment Within Functional Limits M9 OT- IP Assessment and Plan Start: 06/21/23 16:44 Freq: Status: Active Protocol: Document 06/21/23 16:45 [facility] (Rec: 06/21/23 17:02 [facility] [id number]) OT Summary Assessment and Plan Potential Rehabilitation Potential Excellent Analytic Complexity at Evaluation Low Summary OT Impairments Pain,Strength,Balance, Functional Mobility,Dressing, Toileting,Shower Transfers, Activity Tolerance Progress Towards Goals Progressing Toward Goals,Slow Progress due to Pain,Slow Progress due to Medical Issues Assessment Summary Pt low complexity and main barriers are steps, pain, having some hypotension when up on her feet and weakness with her RLE at this time. Able to talk about equipment needs at home with ADL needs. Pt to go home with assist from daughter and and scheduled to go to outpt PT. Encourage pt to do her knee exercise in bed and in the chair. Goals Grooming Goal Independent Dressing Goal Minimal Assistance Toileting Goal Independent Bathing Goal Standby Assistance Toilet Transfer Goal Independent Shower Transfer Goal Standby Assistance Days to Meet Goals 7 Frequency of Treatment Frequency Of Treatment Once a Day Treatment Plan OT Treatment Plan ADL Training,Functional Mobility,Patient/Family Education,Discharge Planning Discharge Recommendations OT Discharge Recommendations Home with Assistance, Outpatient PT Home Equipment Needs shower chair with arms, LB dressing equipment Transportation Needs at Discharge Private Vehicle
[2023-06-21] MEDS: INSULIN LISPRO 100 UNIT/ML 3ML VIAL SUBCUT (17:18)
[2023-06-21] MEDS: ASPIRIN EC 81 MG TABLET PO (20:22)
[2023-06-21] MEDS: METFORMIN XR 500 MG TABLET 1000 MG PO (20:22)
[2023-06-21] MEDS: DOCUSATE 100 MG CAPSULE PO (20:22)
[2023-06-22] MEDS: IBUPROFEN 400 MG TABLET PO ×3 (00:17→08:16)
[2023-06-22] MEDS: CEFAZOLIN 2 GM/100 ML PREMIX 100 ML IV (00:18)
[2023-06-22] MEDS: OXYCODONE IR 5 MG TABLET PO ×2 (04:01→09:47)
[2023-06-22 06:00] VITALS: BP 110/50; PULSE 74; RESP 16; TEMP 36.1; O2SAT 96
[2023-06-22 07:29] LABS: Hematocrit 27.3 % (36-46); Hemoglobin 9.1 g/dL (12.0-16.0)
--- NOTE | 2023-06-22 07:37 | PM.DS.1 ---
History of Present Illness History of Present Illness Date Patient Seen: 06/22/23 Time Patient Seen: 07:37 Chief complaint: Knee pain Narrative: Left knee pain is mild. Denies fever or chills. No nausea or vomiting. Patient does have assistance at home. Patient states she was able to get up and used the restroom a couple times last night. Discharge Providers Provider Discharge Date: 06/22/23 Primary care physician: Alannah Dior MD Consults: 06/21/23 06:00 Consult to Anesthesiology Routine Comment: Consulting Provider: Anesthesiologist Reason for consultation: Regional block for post operative pain control 06/21/23 11:27 Consult to Discharge Planning Routine Comment: Consult to Occupational Therapy Evaluate & Treat Comment: Physician Instructions: Evaluate and treat Consult to Physical Therapy Evaluate & Treat Comment: Physician Instructions: postop TKA protocol Discharge provider: Ap Dobson PA-C Summary Hospital Course Discharge Diagnosis: Left knee osteoarthritis Hospital Course: Left total knee arthroplasty with Cori Same procedure as scheduled: Yes Indications: The patient has had progressively worsening left knee pain with radiographic changes consistent with arthritis. Non-operative management has failed and the patient has requested total knee replacement. The risks, benefits and alternatives to surgery were discussed with the patient prior to proceeding. Risks discussed included, but were not limited to, failure to relieve pain, stiffness, infection, nerve damage, deep venous thrombosis, pulmonary embolism, stroke, coma, heart attack, permanent paralysis and , as well as the potential need for eventual revision of the prosthetic. Surgeon: Leticia Knowles Pot Filler: Ap Dobson Anesthesia Type: General and Spinal Operative Notes Findings: Severe left knee OA, adequate stability, adequate Closure Type: primary Specimen(s): none sent Prosthetic devices, grafts, tissues, transplants, or devices: Left total knee journey BCS 2, size 5 femur, size 4 tibia, 10 mm polyethylene, patella 35 x 7-1/2 Estimated Blood Loss (mL): 250 Blood products transfused: none Tourniquet time (min): 94 Patient admitted to the hospital for left total knee arthroplasty with Cori. Patient consented to the same. Patient underwent left total knee arthroplasty yesterday June 21, 2023. Patient back in her room recovering well as a stable condition. Continue multimodal pain management, aspirin for DVT prophylaxis. Weightbearing as tolerated. Discharge home today after physical therapy if safe for home environment. Status at Discharge Cognitive/behavioral status at discharge: at baseline, confused Functional status at discharge: uses cane/walker Overall status at discharge: patient is progressing back to baseline Exam Vital Signs (past 8 hours): - 06/22/23 06:00 Temperature 96.9 F L Pulse Rate 74 Respiratory Rate 16 Blood Pressure 110/50 L Pulse Oximetry 96 Oxygen Flow Rate 0 Oxygen Delivery Method Room Air Oxygen Flow Rate 0 Narrative Exam Narrative: 67-year-old female resting comfortably in bed in no apparent distress. Marbella dressing is on and functioning. Marbella dressing is clean and dry. Motor functions intact distal left lower extremity. Sensation grossly intact to light touch left lower extremity. Const General: cooperative and comfortable Nutritional Appearance: obese (BMI 44.6) Orientation: alert Resp Effort & Inspection: normal respiratory effort and able to speak in complete sentences Objective Labs 06/22/23 07:12 Labs: Laboratory Results - last 24 hr 06/22/23 07:12 Hgb 9.1 L Hct 27.3 L PFSH Medical History History of COVID-19 (2020) Osteoarthritis Endometrial cancer History of cardioversion Obesity, Class III, BMI 40-49.9 (morbid obesity) History of uterine cancer Anemia Chronic kidney disease Chronic knee pain Knee pain Obstructive sleep apnea of adult Atrial fibrillation Fatigue Hypertension Insomnia Type 2 diabetes mellitus Surgical History History of esophagogastroduodenoscopy (EGD) (08/10/22) Hx of colonoscopy (08/10/22) History of hysterectomy with oophorectomy Status post delivery Status post delivery Family History Father Age: 91 Prostate cancer Esophageal cancer Heart disease Hypertension Social History household members: spouse Smoking Status: Former smoker alcohol intake: current additional social history: Swimming at the [employer] for exercise Discharge Assessment & Plan Assessment and Plan Assessment: Patient progressing as expected status post left total knee arthroplasty Plan of Treatment: Multimodal pain management Weight-bearing as tolerated Aspirin for DVT prophylaxis Discharge home today after physical therapy if safe for home environment Discharge Plan Discharge orders & Medications Discharge Orders: Discharge (Order); Ordered 06/22/23 Ordered By: Ap Dobson Prescriptions: New acetaminophen 325 mg Tablet 650 mg PO Q6H Qty: 60 0RF aspirin 81 mg Tablet,Delayed Release (Dr/Ec) 81 mg PO BID Qty: 60 0RF polyethylene glycol 3350 17 gram Powder In Packet 17 g PO DAILY PRN (Reason: Constipation) Qty: 14 0RF ibuprofen 400 mg Tablet 400 mg PO Q4H Qty: 60 0RF Continued (DME) pen needle, diabetic [BD Ultra-Fine Short Pen Needle] 31 gauge x 5/16 needle See Rx Instructions .Route Qty: 100 11RF Rx Instructions: BID lisinopril-hydrochlorothiazide 20-12.5 mg tablet 1 tab PO DAILY Qty: 90 1RF Rx Instructions: Take in a.m. amlodipine 2.5 mg tablet 2.5 mg PO BEDTIME Qty: 90 1RF metformin 500 mg tablet extended release 24hr 1,000 mg PO BID Qty: 360 1RF tirzepatide 7.5 mg/0.5 mL pen injector 7.5 mg SUBCUT QWEEK Qty: 2 0RF Toujeo Max U-300 SoloStar 300 unit/mL (3 mL) insulin pen 20 unit SUBCUT BEDTIME Qty: 3 0RF Rx Instructions: Pt must be seen in July for further refills Discontinued aspirin 81 mg Capsule 81 mg PO DAILY Follow up/Referrals: Alannah Dior MD [Primary Care Provider] - Leticia Knowles MD [Physician] - (2 weeks as scheduled) Diet/Activity/Treatments Diet: Diet as Tolerated Activity: Short frequent walks Skin/Wound/Dressing Care Report to your healthcare provider any signs of infection, such as:: chills, fever, night sweats, increased pain, unusual drainage and unusual redness Dressing: Keep dressing clean and dry, marbella monitor we will discontinue working after 5-7 days. May cut the tubing at the base of the dressing and be thrown away. The dressing itself should remain in place for 2 weeks. Gagandeep wrap may be removed in 24-48 hours. Visit Report/Discharge Packet Instructions: DI for Knee Replacement, DI for Prescription Opioid Use Stand Alone Forms: Patient Portal/API, Surgery Discharge Discharge Data Primary Care Provider: Alannah Dior Attending Provider: Leticia Knowles VTE Deep Vein Thrombosis/Pulmonary Embolism Present on Admission: No
[2023-06-22 08:00] VITALS: BP 143/57; PULSE 72; RESP 16; TEMP 36.1; O2SAT 100
[2023-06-22] MEDS: DOCUSATE 100 MG CAPSULE PO (08:16)
[2023-06-22] MEDS: METFORMIN XR 500 MG TABLET 1000 MG PO (08:17)
[2023-06-22] MEDS: hydroCHLOROthiazide 25 MG TABLET 12.5 MG PO (08:17)
[2023-06-22] MEDS: ASPIRIN EC 81 MG TABLET PO (08:17)
[2023-06-22 08:18] VITALS: BP 143/57; PULSE 80
[2023-06-22] MEDS: lisinopriL 20 MG TABLET PO (08:18)
--- NOTE | 2023-06-22 09:10 | PT.IIE ---
Current Diagnoses Unilateral primary osteoarthritis, left knee (06/21/23) Surgery Performed Operation Date: 06/21/23 07:45 Actual Procedures p Total Knee Arthroplasty - Robot(Left) - Leticia Knowles MD Surgical History (Last Reviewed 06/22/23 @ 07:40 by Ap Dobson PA-C) History of esophagogastroduodenoscopy (EGD) (08/10/22) History of hysterectomy with oophorectomy Hx of colonoscopy (08/10/22) Status post delivery Status post delivery Medical History (Last Reviewed 06/22/23 @ 07:40 by Ap Dobson PA-C) Anemia Atrial fibrillation Chronic kidney disease Chronic knee pain Endometrial cancer Fatigue History of cardioversion History of COVID-19 (2020) History of uterine cancer Hypertension Insomnia Knee pain Obesity, Class III, BMI 40-49.9 (morbid obesity) Obstructive sleep apnea of adult Osteoarthritis Type 2 diabetes mellitus Physical Therapy Inpatient Evaluation/Re-Eval M1 PT/OT-IP Prior Functional Status Start: 06/21/23 16:44 Freq: NEEDED Status: Discharge Protocol: Document 06/21/23 16:45 [facility] (Rec: 06/21/23 17:02 [facility] [id number]) Medical Review Prior Functional Status Communication Independent Mobility and Gait Able to walk without a device but limited per pt. Activities of Daily Living and IADL's Pt had pain during ADl and IADL needs. Prior Functional Level (Other details) Pt's daughter to be staying with her and her to assist her at home. Social History Household Members spouse Living Arrangements House Number of Floors (Floors) Two Floors Number of Stairs To Enter/Railing? Pt has 2 steps with left rail to get into the house and can stay on the main level. Home Environment High Toilet,Walk in Shower, Built-In Shower Seat Home Equipment Front Wheel Walker,Quad Cane, Bedside Commode,Hand Held Shower,Grab Bars In Shower Additional Social History Comment Pt has an adjustable bed. M1 PT/OT-IP Prior Functional Status Start: 06/22/23 13:21 Freq: NEEDED Status: Active Protocol: Document 06/22/23 09:10 AB (Rec: 06/22/23 13:35 AB [id number]) Medical Review Prior Functional Status Medical History Reviewed Yes Communication able to make needs known Mobility and Gait pt stated that she was independent with all mobilities and ambulation without AD Prior Functional Level (Other details) . Social History Household Members spouse Living Arrangements House Number of Floors (Floors) Two Floors Number of Stairs To Enter/Railing? pt stays on main level of the house has 2 steps R rail/bar ascending to enter the house Home Environment High Toilet,Walk in Shower, Built-In Shower Seat Home Equipment Front Wheel Walker,Quad Cane, Bedside Commode,Hand Held Shower,Grab Bars In Shower Additional Social History Comment spouse will be assisting pt at home M2 PT-IP Current Condition Start: 06/22/23 13:21 Freq: NEEDED Status: Active Protocol: Document 06/22/23 09:10 AB (Rec: 06/22/23 13:35 AB [id number]) Physical Therapy Current Condition Current Condition Evaluation Date 06/22/23 Treatment Diagnosis s/p L TKA; difficulty in walking Onset Date 06/21/23 M3 PT-IP Subjective Start: 06/22/23 13:21 Freq: NEEDED Status: Active Protocol: Document 06/22/23 09:10 AB (Rec: 06/22/23 13:35 AB [id number]) Subjective Physical Therapy Visit Type Type Initial Evaluation Visit Start Time 09:10 Visit Stop Time 10:15 Number of DRYING ROOM SUPERVISOR Visits 65 Physical Therapy Visit Comments Patient Comments pt is agreeable to do PT Therapy Pain Assessment Pain When Pain Assessed At Rest Pain Present Pain Present Pain Reported Location Left Knee Intensity 5 Scale Used Numeric (0 - 10) Pain Management Techniques Distraction,Modification of Treatment,Re-positioning, Timing of Activity with Medications M4 PT-IP Mobility and Gait Start: 06/22/23 13:21 Freq: NEEDED Status: Active Protocol: Document 06/22/23 09:10 AB (Rec: 06/22/23 13:35 AB [id number]) PT-Bed Mobility Assessment Supine to Sit Supine to Sit Standby Assistance Sit to Supine Sit to Supine Standby Assistance PT-Transfer Assessment Sit to and From Stand Sit to and from Stand Contact Guard Assistance, Minimal Assistance,1 Person Assistance,Use of Upper Extremities Equipment Transfer Assistive Device Gait Belt,Front Wheeled Walker Orthotic/Prosthetic Devices or Brace: No Transfers Transfer Destination Bed,Chair Transfer Technique ambulated Transfer Ability Level of Assist Standby Assistance,Contact Guard Assistance,1 Person Assistance,Use of Upper Extremities Comments Mobility Comments pt sitting on the chair and agreeable to do PT. obtained PLOF and home set up from pt. pt completed sit to stand from the chair CGA with heavy UE use to push and unsteady initial standing balance. instructed pt to sit back on bed. educated on sit<>stand techniques. pt completed sit to stand again CGA, ambulated in room using FWW CGA and cues for L quads activation. pt sat on EOB. demonstrated sit<> supine SBA. spouse arrived. caregiver training conducted. spouse educated on use of safety belt and how to assist pt. spouse was able to put safety belt on pt and assisted pt with sit to stand but pt unable even after 2 attempts. PT assisted and pt required min A. educated pt again on sit to stand techniques and to focus on LE pushing than UE pushing from armrest. pt completed sit <>stand again with spouse assisting and PT cueing and completed CGA. pt ambulated in the hallway ~ 75 ft using fWW CGA with spouse assisting. pt sat on the chair. educated on stair climbing techniques. pt completed sit to stand from the w/c CGA with spouse assisting and completed up/ down stairs using R rail+quad cane CGA to min A and spouse was able to assist. assisted pt back to her room. call light and table placed within reach. Left pt with nurse. Gait Assessment Gait Gait Assistance Required: Standby Assistance,Contact Guard Assist Distance (Feet) 75 Able to Maintain Weight Bearing Status Yes During Gait Assistive Devices Assistive Device Gait Belt,Front Wheeled Walker Orthotic/Prosthetic Devices or Brace: No Gait Deviations General Gait Pattern Antalgic,Decreased Stride Length,Decreased Feet Clearance Factors Limiting Gait Function Factors Limiting Gait Function Decreased Activity Tolerance, Decreased Strength,Difficulty Following Directions,Limited Range of Motion,Pain,Poor Balance,Poor Safety Awareness Stair Climbing Assessment Evaluation Level of Assist On Stairs Contact Guard Assistance, Minimal Assistance Devices Stair Climbing Assistive Devices Small Base Quad Cane,Right Railing Technique/Endurance Stair Climbing Direction Ascend and Descend Stair Climbing Technique Step to Step Number of Steps Climbed 3 Query Text: Stair Climbing Set # Repetitions (reps) 1 PT-Balance Assessment Sitting Balance and Reactions Static Sitting Balance Ability Normal Dynamic Sitting Balance Ability Good Standing Balance and Reactions Static Standing Balance Ability Fair Dynamic Standing Balance Ability Fair Device Used FWW M5 PT-IP Objective Assessments Start: 06/22/23 13:21 Freq: NEEDED Status: Active Protocol: Document 06/22/23 09:10 AB (Rec: 06/22/23 13:35 AB [id number]) Orientation Orientation/Cognition Level of Alertness Alert Orientation Name,Place,Situation Language Function Ability No Deficits Noted Safety Awareness Decreased Safety Awareness Memory Description No Deficits Noted Gross Range of Motion Lower Extremity ROM Assessment Right Impaired Impairments R knee flexion: ~ 70 deg Strength Lower Extremity Strength Assessment Right Impaired Hip 3-/5 Knee 3+/5 Coordination Assessment Gross Coordination Gross Coordination WNL Sensation Assessment Sensation Gross Sensation WNL Muscle Tone Muscle Tone WNL Yes M6 PT-IP Treatment Start: 06/22/23 13:21 Freq: NEEDED Status: Active Protocol: Document 06/22/23 09:10 AB (Rec: 06/22/23 13:35 AB [id number]) Physical Therapy Treatment Education Education Provided Precautions,Weight Bearing Status,Safety M7 PT-IP Assessment and Plan Start: 06/22/23 13:21 Freq: NEEDED Status: Active Protocol: Document 06/22/23 09:10 AB (Rec: 06/22/23 13:35 AB [id number]) PT Summary Assessment and Plan Potential Rehabilitation Potential Good Status of Condition at Evaluation Stable Summary Impairments Pain,ROM,Strength,Balance, Coordination,Sensation,Tone, Cognition,Bed Mobility, Transfers,Gait,Activity Tolerance Assessment Summary pt is a 67 y/o F s/p L TKA POD 1. pt is WBAT on LLE. pt requiring CGA to min A with mobility using fWW. caregiver training conducted and spouse was able to safely assist pt with mobility. pt plans to go home with spouse assisting and has outpt PT set up. pt may go home when medically stable. Goals Bed Mobility Goal Independent Transfer Goal Independent,Front Wheeled Walker Gait Goal Independent,Front Wheel Walker Gait Distance 200 Other Goals up/down 2 steps R rail/bar + quad cane SBA Days to Meet Goals 5 Frequency of Treatment Frequency Of Treatment Twice a Day Treatment Plan Physical Therapy Treatment Plan Bed Mobility Training,Transfer Training,Gait Training, Therapeutic Exercise,Balance Retraining,Post Op Education, Discharge Planning,Hot or Cold Pack,Neuromuscular Re-ed, Coordination Retraining,Manual Therapy Weight Bearing Status Weight Bearing Status Weight Bear as Tolerated Allowed Weight Bearing Amount (enter % LLE WBAT or #) (%) Recommendations To Nursing Amount of Assist Needed 1 Person Assist Discharge Recommendations PT Discharge Recommendations Home with Assistance, Outpatient PT Transportation Needs at Discharge Private Vehicle
--- NOTE | 2023-06-22 10:13 | OT.IP.TRT ---
Current Diagnoses Unilateral primary osteoarthritis, left knee (06/21/23) Surgery Performed Operation Date: 06/21/23 07:45 Actual Procedures p Total Knee Arthroplasty - Robot(Left) - Leticia Knowles MD Occupational Therapy Treatment Note M2 OT-IP Current Condition Start: 06/21/23 16:44 Freq: Status: Active Protocol: Document 06/21/23 16:45 [facility] (Rec: 06/21/23 17:02 [facility] [id number]) Occupational Therapy Current Condition Current Condition Evaluation Date 06/21/23 Treatment Diagnosis S/P L TKA Diagnosis Onset Date 06/20/23 M3 OT- IP Subjective and Pain Start: 06/21/23 16:44 Freq: Status: Active Protocol: Document 06/22/23 11:30 [facility] (Rec: 06/22/23 11:34 [facility] [id number]) OT- Subjective Occupational Therapy Visit Type Type Treatment Note Visit Start Time 10:05 Visit Stop Time 10:13 Occupational Therapy Visit Comments Patient Comments Able to talk to pt to finalize OT needs for ADL's. Patient/Caregiver Goals TO go home. M4 OT- IP ADL's Start: 06/21/23 16:44 Freq: Status: Active Protocol: Document 06/22/23 11:30 [facility] (Rec: 06/22/23 11:34 [facility] [id number]) OT ADL-Dressing General Eval Lower Body Dressing Ability Independent Comments OT Dressing Comments Pt states able to dress herself and be mindful of her knee positioning needs. OT ADL-Toileting Comments OT Toileting Comments Pt states has had no difficulty to get into and out of the bathroom. OT ADL-Bathing Comments OT Bathing Comments Pt's to be able to assist her and went over again to cover the dressing prior to showering, otherwise can sponge off. M5 OT- IP IADL's Start: 06/21/23 16:44 Freq: Status: Active Protocol: Document 06/21/23 16:45 [facility] (Rec: 06/21/23 17:02 [facility] [id number]) OT-Instrumental Activities of Daily Living Deficits IADL Deficits Identified Deficits Home Safety Awareness Awareness of Need for Assistance at Home Good Awareness Ability to Problem Solve Emergency Able to Problem Solve Situations Meal Preparation Meal Preparation Caregiver Provides Assist Meat Boner Meat Boner Caregiver Provides Assist M6 OT- IP Functional Cognition Start: 02/15/24 16:44 Freq: Status: Active Protocol: Document 06/21/23 16:45 [facility] (Rec: 06/21/23 17:02 [facility] [id number]) Cognitive Factors Limiting Selfcare Function Cognitive Ability Level of Alertness Alert Patient Orientation Name,Age,Birthday,Month,Date, Year,Day of Week,Place, Situation Attention Span Ability Capable of Focused Attention, Capable of Sustained Attention Ability to Follow Commands Able to Follow Multi-Step Commands Cognitive Comments Cognitive Assessment Comments Pt is intact. OT- Vision and Hearing OT- Hearing Assessment OT- Hearing Assessment WFL OT- Vision Assessment Visual Acuity Glasses For Reading Visual Attentiveness WFL Occular Pursuits WFL Freq: Status: Active Protocol: Document 06/22/23 11:30 [facility] (Rec: 06/22/23 11:34 [facility] [id number]) OT Summary Assessment and Plan Potential Rehabilitation Potential Excellent Analytic Complexity at Evaluation Low Summary OT Impairments Pain,Strength,Balance, Functional Mobility,Dressing, Toileting,Shower Transfers, Activity Tolerance Progress Towards Goals Progressing Toward Goals Assessment Summary Able to finalize all OT suggestions and needs for pt . Pt to go home with her to assist and have outpt PT. Goals Grooming Goal Independent Dressing Goal Independent Toileting Goal Independent Bathing Goal Standby Assistance Toilet Transfer Goal Independent Shower Transfer Goal Standby Assistance Days to Meet Goals 3 Frequency of Treatment Frequency Of Treatment Once a Day Treatment Plan OT Treatment Plan ADL Training,Functional Mobility,Patient/Family Education,Discharge Planning Discharge Recommendations OT Discharge Recommendations Home with Assistance, Outpatient PT Home Equipment Needs shower chair with arms Transportation Needs at Discharge Private Vehicle
--- NOTE | 2023-06-22 10:39 | CM.DANOTE ---
Brief DCP Assessment Note Pt is a 67yo F here following scheduled left knee surg with Dr. Knowles on 06.21.23 PCP Alannah Dior [facility] EXTERIOR INTERIOR SPECIALIST reviewed EMR. Per OT, rec home with assistance. Spouse and dtr at home to support. Per chart review, spouse and pt live on [address] ([address] [phone]) independently. Pt has a walker/cane/bedside commode/additional equip at home. Per RN, doing well. RN completing priority boarding pass for pt. Pt and spouse leave as this EXTERIOR INTERIOR SPECIALIST went to complete full assessment. Pt was standing/ambulating in room. No identified CM needs. Plan: home with spouse/dtr today [place]. No identified CM needs. CM team will follow as needed. FRANKLIN Nuñez Discharge Planning/Care Management CM Discharge Assessment Start: 06/22/23 10:37 Freq: Status: Active Protocol: Document 06/22/23 10:37 SL (Rec: 06/22/23 10:39 [id number]) Discharge Planning Assessment Assigned Mapper FRANKLIN Aguirre DPOA/Assigned Designee Name leif Brock Contact Information [phone] Advance Directives? No Advance Directives on File No History Provided By Patient,Medical Record Prior Living Arrangements House Household Members spouse Independent with ADL's Yes Is patient alert and oriented? Yes DME Already Rented / Owned Elevated Toilet Seat,FWW / Walker,Cane,Bedside Commode Barriers to Discharge No Discharge Plan Foster Care Transportation Arrangement family [place] and [place] Referrals Initiated None needed Whiteboard Updated in Patient Room with No name and ext. # of Mapper Review Status In Process Next Review Type Continued Stay Review Pre-Anesthesia Assessment Start: 06/12/23 12:48 Freq: Status: Complete Protocol: Document 06/12/23 12:48 CAB (Rec: 06/12/23 13:41 CAB [id number]) Pre-Anesthesia Assessment Preferred Name Huyen Patient Information Reviewed Via Phone Assessment Assessment Completed With Patient Diagnostic Results BMP/CMP,CBC,EKG Comment Labs @ [facility] 03/27/23, outside EKG scanned Primary Care Provider Alannah Dior Seen Specialist in Last 12 Months Yes Specialist Seen Oncologist,Opthamologist/ Credit Collections Manager,Orthopedist Primary Language [place] Welding Machine Tender Required No Height 162.56 cm Weight 117.934 kg Body Mass Index (BMI) 44.6 Hearing Ability Normal Visual Assist Magnifying Glass Dentition Type Teeth, Natural Present Barriers to Learning None Hx Anesthesia Reactions No: Pt denies DOMINGO, home study' positive per sleep visit @ 10/30/18 Hx Family Anesthesia Reaction No Hx Malignant Hyperthermia No Hx Blood Transfusions No Hx Blood Transfusion Reaction No Anesthesia Review Requested No Business Development Manager No alcohol intake current alcohol intake frequency a few times a month Smoking Status Former smoker how long ago did patient quit smoking Quit age 35 Comment Edible marijuana Pain Present Pain Reported Musculoskeletal Symptoms Abnormal Gait,Difficulty Walking,Joint Pain History of Falling (Recent or History of No ) Patient is completely paralyzed or No completely immobile Mental Status Oriented to own ability Is patient on oxygen? No Does patient have CHE/SOB No Hx Sleep Apnea Yes: Pt denies CPAP/BIPAP use not prescribed Currently Taking a Beta Judit No Hx Chest Pain No Hx SOB No Hx Syncope or Dizziness No Anti-Coagulant Therapy Yes: ASA 81mg -pt states she is holding, does not want to check w/PCP Has a Commercial Portfolio Manager No: No longer follows with [facility] Cardiac Testing No Hx Pacemaker/ICD No Pacemaker Rep Required? No Cardiac Clearance Received Not Applicable Comment Hx of PAF, cardioversion Diet Type At Home Regular Dysphagia No Gastrointestinal Symptoms None Chronic UTI No Bladder Pattern Frequency Urinary Catheter Present No Hx Urinary Self Catheterization No Diabetes Yes HgbA1C 5.9 Date 03/27/23 Patient No Lactating No Hx Drug Resistant Organism No Presence of External or Internal Medical No Devices Received a COVID vaccine? Yes Received all doses? Yes Marital Status Lives With spouse Current Living Arrangements House Number of Floors (Floors) Two Floors Support System Child/Children,Friend(s), Spouse Comment Daughter will stay w/pt to assist at DC Does the Patient Have Assistance After Yes Surgery Patient Discharge Plan Description Return Home Comment Pt advised overnight length of stay per surgeon Additional comment Pt lives on [facility] Feels Safe in Current Environment Yes Been Physically Hurt or Threatened By a No Person in Current Environment Do you have thoughts of harming yourself None or others? Are you currently considering suicide? No Do you have a plan to hurt yourself or No Plan others? Do You Have Any Spiritual Beliefs That No May Affect Your HC Choices? Do You Have Any Cultural Practices That No May Affect Your HC Choices? Comment Scientology Who Can We Speak to About Patient's Care Family, friends Identifying Code for Release of Patient Declines to issue Information Health Care Proxy/Next of Kin Bret () Health Care Proxy Emergency Contact Name Irma (daughter) Emergency Contact Advance Directives? No Advance Directives on File No Power of Email Production Specialist No PAC Instructions Diabetes instructions,Do not shave/clip surgical site, Durable medical equipment, Medications to take/avoid, Nasal antibiotic,No ETOH/ petroleum product on skin DOS, NPO,Pre-surgical wash,Sensory aids,Sturdy shoes/comfortable clothes,Do not bring valuables and remove jewelry
== END 2023-06-22 10:45 | disposition home or self-care (01) ==
LOC: OR 06:16 → AC 06:21
PROVIDERS: PCP Family Medicine; Referring Provider Orthopaedic Surgery; Visit Provider Orthopaedic Surgery
PROC: 0SRD0JZ Replacement of Left Knee Joint with Synthetic Substitute, Open Approach (ICD-10-PCS; CPT 27447; principal; 2023-06-21 07:45)
DX: M17.12 Unilateral primary osteoarthritis, left knee (principal); M25.762 Osteophyte, left knee
CPT/HCPCS: 27447; 36415; 73560; 82962; 85014; 85018; 97161; 97165; 97530; 97535; C1776; C9290; J0171; J0690; J1815; J2250; J2405; J2704; J3010

== ENCOUNTER → 2023-08-23 11:35 | Outpatient (CLI) | payer MEDICARE, SELFPAY ==
[2023-06-21 11:33] VITALS: BMI 44.6
[2023-08-23 18:57] LABS: Add Manual Diff / Slide Review NO; Basophils Absolute Auto 100 /uL (0-100); Basophils Percent Auto 1.2 % (0-2); Eosinophils Absolute Auto 100 /uL (0-450); Hematocrit 32.7 % (36-46); Hemoglobin 10.8 g/dL (12.0-16.0); Lymphocytes Absolute Auto 1400 /uL (1100-4500); Lymphocytes Percent Auto 19.4 % (25-40); Mean Corpuscular HGB Conc 32.9 % (30-36); Mean Corpuscular Hemoglobin 32.4 PG (26-34); Mean Corpuscular Volume 98.4 fL (80-100); Monocytes Absolute Auto 600 /uL (0-900); Neutrophils Absolute Auto 5100 /uL (1500-7000); Neutrophils Percent Auto 69.4 % (50-75); Platelet Count 376 X10^3/uL (150-400); Red Blood Cell Count 3.32 X10^6/uL (4.0-5.2); Red Cell Distribution Width 14.5 % (11.6-14.8); White Blood Cell Count 7.4 X10^3/uL (4.5-11.0)
== END ==
PROVIDERS: PCP Family Medicine; Visit Provider Orthopaedic Surgery
DX: Z01.812 Encounter for preprocedural laboratory examination (principal)
CPT/HCPCS: 85025

== ENCOUNTER 2023-08-28 06:26 | Day surgery (SDC) | payer MEDICARE, SELFPAY ==
[2023-06-21 11:33] VITALS: BMI 44.6
[2023-08-14 15:15] VITALS: BMI 45.3
[2023-08-28] VITALS (13 sets, daily range): BP systolic 116–145; BP diastolic 54–90; PULSE 71–79; RESP 12–19; TEMP 35.9–36.7; O2SAT 94–98; BMI 45.3
[2023-08-28] MEDS: ACETAMINOPHEN 325 MG TABLET 975 MG PO (06:45)
[2023-08-28] MEDS: CELECOXIB 200 MG CAPSULE PO (06:46)
[2023-08-28] MEDS: VANCOMYCIN 1,000 MG/200 ML PIGGYBACK 200 MG IV (07:10)
--- NOTE | 2023-08-28 07:11 | DI.RAD.S_ITS ---
PROCEDURE: XR KNEE RT 1TO2V INDICATIONS: total right knee arthroplasty TECHNIQUE: 2 view(s) of the knee acquired. COMPARISON: [facility], CR, XR KNEE LT 1TO2V, 06/21/2023, 10:38. [facility] ([facility] CR, XR KNEE RT 3V, 01/21/2021, 11:35. FINDINGS: Bones: Patient is status post knee joint arthroplasty. Hardware components are in expected positions. Visualized bony structures are intact. Soft tissues: Overlying postoperative changes are noted. IMPRESSION: Expected post-operative appearance of a knee arthroplasty. Dictated by: Ovi Townsend M.D. on 08/28/2023 at 13:47 Approved by: Ovi Townsend M.D. on 08/28/2023 at 13:47
[2023-08-28] MEDS: LACTATED RINGERS 1,000 ML 42 ML IV ×2 (07:18→09:40)
--- NOTE | 2023-08-28 07:40 | P.OP_ITS ---
Operative Date/Time/Diagnoses Date of procedure: 08/28/23 Time of procedure: 08:00 Pre-op diagnosis: RIGHT KNEE OA Post-op diagnosis: same Procedure & Clinicians Procedure: Right total knee arthroplasty Same procedure as scheduled: Yes Indications: The patient has had progressively worsening right knee pain with radiographic changes consistent with arthritis. Non-operative management has failed and the patient has requested total knee replacement. The risks, benefits and alternatives to surgery were discussed with the patient prior to proceeding. Risks discussed included, but were not limited to, failure to relieve pain, stiffness, infection, nerve damage, deep venous thrombosis, pulmonary embolism, stroke, coma, heart attack, permanent paralysis and , as well as the potential need for eventual revision of the prosthetic. Surgeon: Leticia Knowles Alarm Investigator: Ap Dobson Anesthesia Type: General and Peripheral nerve block Operative Notes Findings: Severe right knee osteoarthritis, adequate stability Closure Type: primary Specimen(s): none sent Prosthetic devices, grafts, tissues, transplants, or devices: Knowles and nephew [facility] BC 2 size 5 femur, size 4 tibia, 35 by 7.5 patella, +10 poly Estimated Blood Loss (mL): 250 Blood products transfused: none Tourniquet time (min): 79 Procedure in detail: The patient was seen in the pre-operative area, where the patient identified the right knee as the operative site and this was marked with my initials. The patient received pre-operative antibiotics, and was taken to the operating room and placed on the operative table in the supine position. After satisfactory anesthesia, a night time babysitter out was performed. The right leg was encircled with a tourniquet about the proximal thigh, and the leg was prepared from the toes to the tourniquet with ChloroPrep in the usual fashion and draped through sterile drapes. The leg was elevated and exsanguinated with Eschmark bandage and the tourniquet inflated to [250] mmHg pressure. A PA was used during the procedure and was essential for intraoperative retraction and safe implantation of the components. The knee was approached through an approximately 20 cm incision centered over the patella and carried into the knee through a medial parapatellar arthrotomy. Portion of the medial and lateral meniscus was resected. Soft tissue was carefully mobilized around the patella the patella was measured with a caliper. Bone was resected from the patella and the patellar height was reconstituted with an appropriate sized patellar component. A cover was then placed on the patella. A small amount of additional medial and lateral meniscus was resected. Cori pins were placed in the femur and the tibial guide was attached and pinned for navigation. The knee was meticulously mapped and placed through a range of motion and stressed and non stressed curves were taken. A plan was developed to optimize range of motion and stability and alignment. The robotic assisted bur was used to remove the distal femur for the distal femoral cut. It looked like an appropriate distal femoral cut and the cut was made without difficulty. The rotation was assessed and the appropriate size femoral guide was placed on the distal femur and finishing cuts were made. There was no evidence of notching. The anterior, posterior and chamfer cuts were then made. The posterior ost eophytes and soft tissues were then removed. The posterior capsule was injected with part of a mixture of 60 ml 0.25% Marcaine mixed with 266 mg Exparel for post operative pain control. The remainder of this mixture was injected into the capsule and subcutaneous tissues during cement curing. The tibia guide was meticulously navigated in order to optimize the tibial cut. The proximal tibial cut was made. It appeared to be an adequate cut. The patient was placed in extension residual medial and lateral meniscus as well as any residual bone was carefully resected. [No] additional tibia was resected. Hemostasis was achieved especially posteriorly. Additional local was injected into the posterior capsule. The extension gap was assessed. The femoral component was trial was placed and the notch was finished. Trial tibial and femoral components were then placed and the knee placed through a range of motion. Range of motion was [0-130], with good stability throughout the range. The trials were then removed, and the tibia was finished. The bone was prepared with pulsatile lavage, and dried with a sponge. Cement was applied and the final prosthetics placed. Excess cement was removed during and after cement curing. A brief Betadine soak was performed. After confirming there was no extruded cement posteriorly, the final tibial insert was placed. The knee was copiously irrigated and the tourniquet deflated. Hemostasis was obtained with the Bovie cautery. The capsule was closed with interrupted # 1 suture. The subcutaneous layer was closed with barbed sutures, and the skin with a running 3-0 V-Lock suture and skin taj. A marbella dressing was applied and the patient was taken to recovery having tolerated the procedure well. Complications: none Post-operative Condition: stable Disposition: Acute Care Plan for aftercare: The patient will be maintained on a standard total knee replacement protocol with weight bearing as tolerated. The patient will receive aspirin and sequential compression devices for DVT prophylaxis. The patient will be discharged home when safe for the home environment.
--- NOTE | 2023-08-28 07:40 | PM.PREOP ---
Pre-operative Note Interval Note History & Physical reviewed/Exam performed by Physician: Yes Changes to H&P: No
[2023-08-28] MEDS: CEFAZOLIN VIAL 3 GM in SODIUM CHLORIDE 0.9% 100 ML IV ×3 (08:12→23:00)
[2023-08-28] MEDS: TRANEXAMIC ACID 1,000 MG VIAL 1000 MG INJ ×2 (08:15→09:42)
--- NOTE | 2023-08-28 08:25 | SUR.OPER ---
Supine on padded OR bed. Pillow under head, arms secured on padded armboards <90 degree abduction. Safety belt across torso. Non-operative leg secured with tape over blanket over lower leg. Operative leg secured in Julian positioner. Foam padded brace at thigh of operative leg.
[2023-08-28] MEDS: BUPIVACAINE LIPOSOME 266 MG/20 ML VIAL INJ (08:29)
[2023-08-28] MEDS: BUPIVACAINE 0.25% (PF) 60 ML, EPINEPHrine 0.3 MG INJ (08:29)
[2023-08-28] MEDS: ONDANSETRON 4 MG/2 ML INJ IV (10:29)
--- NOTE | 2023-08-28 11:50 | OT.IPNOTE ---
Pt here for s/p R TKA and just recently had L TKA 06/21/23 and had OT eval and treat at that time. Pt states has all ADl equipment needs, FWW, now has a lift chair and will have assist from her at home. Pt not wanting OT eval and has good understanding for ADL needs. Therefore discharge pt for OT services.
[2023-08-28] MEDS: ACETAMINOPHEN 325 MG TABLET 650 MG PO ×3 (12:48→22:58)
[2023-08-28] MEDS: IBUPROFEN 400 MG TABLET PO ×4 (12:49→22:57)
[2023-08-28] MEDS: OXYCODONE IR 10 MG TABLET PO ×2 (13:48→17:23)
[2023-08-28] MEDS: LACTATED RINGERS 1,000 ML 100 ML IV (13:49)
--- NOTE | 2023-08-28 14:00 | PT.IIE ---
Current Diagnoses Bilateral primary osteoarthritis of knee (08/28/23) Surgery Performed Operation Date: 08/28/23 07:45 Actual Procedures p Total Knee Arthroplasty - Robot(Right) - Leticia Knowles MD Surgical History (Last Updated 08/14/23 @ 15:21 by Alexandrea Levine, RN) History of esophagogastroduodenoscopy (EGD) (08/10/22) History of hysterectomy with oophorectomy History of total left knee replacement (06/21/23) Hx of colonoscopy (08/10/22) Status post delivery Status post delivery Medical History (Last Reviewed 06/22/23 @ 07:40 by Ap Dobson PA-C) Anemia Atrial fibrillation Chronic kidney disease Chronic knee pain Endometrial cancer Fatigue History of cardioversion History of COVID-19 (2020) History of uterine cancer Hypertension Insomnia Knee pain Obesity, Class III, BMI 40-49.9 (morbid obesity) Obstructive sleep apnea of adult Osteoarthritis Type 2 diabetes mellitus Physical Therapy Inpatient Evaluation/Re-Eval M1 PT/OT-IP Prior Functional Status Start: 08/28/23 14:47 Freq: NEEDED Status: Active Protocol: Document 08/28/23 14:00 AB (Rec: 08/28/23 14:59 AB [id number]) Medical Review Prior Functional Status Medical History Reviewed Yes Communication able to make needs known Mobility and Gait pt stated that she was independent with all mobilities and ambulation without AD Social History Household Members spouse Living Arrangements House Number of Floors (Floors) Two Floors Number of Stairs To Enter/Railing? pt will stay on main level of the house has 3 steps R grab bar by edge of door to enter the house Home Environment High Toilet,Walk in Shower, Built-In Shower Seat Home Equipment Front Wheel Walker,Quad Cane, Bedside Commode,Hand Held Shower,Lift Recliner,Grab Bars In Shower Additional Social History Comment pt stated that she will sleep on her lift chair M2 PT-IP Current Condition Start: 08/28/23 14:47 Freq: NEEDED Status: Active Protocol: Document 08/28/23 14:00 AB (Rec: 08/28/23 14:59 AB [id number]) Physical Therapy Current Condition Current Condition Evaluation Date 08/28/23 Treatment Diagnosis s/p R TKA; difficulty in walking Onset Date 08/28/23 M3 PT-IP Subjective Start: 08/28/23 14:47 Freq: NEEDED Status: Active Protocol: Document 08/28/23 14:00 AB (Rec: 08/28/23 14:59 AB [id number]) Subjective Physical Therapy Visit Type Type Initial Evaluation Visit Start Time 14:00 Visit Stop Time 14:45 Number of CUT OUT AND MARKING MACHINE OPERATOR Visits 0 Physical Therapy Visit Comments Patient Comments agreeable to do PT Therapy Pain Assessment Pain When Pain Assessed At Rest Pain Present Pain Present Pain Reported Location Right Knee Intensity 6 Scale Used 8/10 with mobility Pain Management Techniques Apply Cold,Distraction, Modification of Treatment,Re- positioning,Timing of Activity with Medications M4 PT-IP Mobility and Gait Start: 08/28/23 14:47 Freq: NEEDED Status: Active Protocol: Document 08/28/23 14:00 AB (Rec: 08/28/23 14:59 [id number]) PT-Bed Mobility Assessment Supine to Sit Supine to Sit Standby Assistance,Head of Bed Elevated,Bedrails Sit to Supine Sit to Supine Standby Assistance PT-Transfer Assessment Sit to and From Stand Sit to and from Stand Minimal Assistance,1 Person Assistance,Use of Upper Extremities Equipment Transfer Assistive Device Gait Belt,Front Wheeled Walker Orthotic/Prosthetic Devices or Brace: No Comments Mobility Comments pt supine in bed and agreeable to do PT. obtained PLOF and home set up. post-op folder provided. pt just had L TKA and stated that she still is familiar with her HEP and has outpt PT set up. BP: 138/65 pt completed supine to sit SBA with HOB elevated and pt used bed rail to assist. pt stated that she will sleep on her lift chair for now. pt able to sit on EOB SBA. no c/o dizziness. completed sit to stand x 3 attempts min A and max cues. ambulated in room using FWW ~ 35 ft CGA. presents with antalgic gait with decrease LE clearance. pt requested to go back to bed . completed sit to supine SBA with use of bed rail. positioned pt in bed. call light and table placed within reach. pt stated that she plans to go home tomorrow and have to catch a 1030 ferry back to [facility]. set up caregiver training at ~ 9am but wants PT even before 9 am if possible. Gait Assessment Gait Gait Assistance Required: Contact Guard Assist Distance (Feet) 35 Able to Maintain Weight Bearing Status Yes During Gait Assistive Devices Assistive Device Gait Belt,Front Wheeled Walker Orthotic/Prosthetic Devices or Brace: No Gait Deviations General Gait Pattern Antalgic,Decreased Stride Length,Decreased Feet Clearance Factors Limiting Gait Function Factors Limiting Gait Function Decreased Activity Tolerance, Decreased Strength,Limited Range of Motion,Pain,Poor Balance PT-Balance Assessment Sitting Balance and Reactions Static Sitting Balance Ability Good Dynamic Sitting Balance Ability Good Standing Balance and Reactions Static Standing Balance Ability Fair Dynamic Standing Balance Ability Fair Device Used FWW M5 PT-IP Objective Assessments Start: 08/28/23 14:47 Freq: NEEDED Status: Active Protocol: Document 08/28/23 14:00 AB (Rec: 08/28/23 14:59 AB [id number]) Orientation Orientation/Cognition Level of Alertness Alert Orientation Name,Place,Situation Language Function Ability No Deficits Noted Safety Awareness Decreased Safety Awareness Memory Description No Deficits Noted Gross Range of Motion Lower Extremity ROM Assessment Right Impaired Impairments R knee flexion: ~ 90 deg Strength Lower Extremity Strength Assessment Right Impaired Hip 3+/5 Knee 3+/5 Sensation Assessment Sensation Gross Sensation WNL Muscle Tone Muscle Tone WNL Yes M6 PT-IP Treatment Start: 08/28/23 14:47 Freq: NEEDED Status: Active Protocol: Document 08/28/23 14:00 AB (Rec: 08/28/23 14:59 AB [id number]) Physical Therapy Treatment Education Education Provided Precautions,Weight Bearing Status,Post-Op Packet,Safety M7 PT-IP Assessment and Plan Start: 08/28/23 14:47 Freq: NEEDED Status: Active Protocol: Document 08/28/23 14:00 AB (Rec: 08/28/23 14:59 [id number]) PT Summary Assessment and Plan Potential Rehabilitation Potential Fair Status of Condition at Evaluation Stable Summary Impairments Pain,ROM,Strength,Balance, Coordination,Sensation,Tone, Cognition,Bed Mobility, Transfers,Gait,Activity Tolerance Assessment Summary pt is a 67 y/o F s/p R TKA POD 0. pt requiring CGA to min A with mobility using FWW and plans to go home with spouse to assist her. will conduct caregiver training tomorrow as well as stair climbing training. will continue to assess progress. Goals Bed Mobility Goal Independent Transfer Goal Independent,Front Wheeled Walker Gait Goal Independent,Front Wheel Walker Gait Distance 150 Other Goals improve transfers and ambulation using LRAD ~ 200 ft mod I up/down 3 steps R grab bar + quad cane SBA Days to Meet Goals 5 Frequency of Treatment Frequency Of Treatment Twice a Day Treatment Plan Physical Therapy Treatment Plan Bed Mobility Training,Transfer Training,Gait Training, Therapeutic Exercise,Balance Retraining,Post Op Education, Discharge Planning,Hot or Cold Pack,Neuromuscular Re-ed, Coordination Retraining,Manual Therapy Other Recommendations and Next Treatment caregiver training 08/29/23 ~ Focus 9am Weight Bearing Status Weight Bearing Status Weight Bear as Tolerated Allowed Weight Bearing Amount (enter % RLE WBAT or #) (%) Recommendations To Nursing Amount of Assist Needed 1 Person Assist Discharge Recommendations PT Discharge Recommendations Home with Assistance, Outpatient PT Transportation Needs at Discharge Private Vehicle
[2023-08-28] MEDS: DOCUSATE 100 MG CAPSULE PO (20:33)
[2023-08-28] MEDS: METFORMIN XR 500 MG TABLET 1000 MG PO (20:33)
[2023-08-28] MEDS: OXYCODONE IR 5 MG TABLET PO ×2 (20:33→23:28)
[2023-08-28] MEDS: ASPIRIN EC 81 MG TABLET PO (20:33)
[2023-08-28] MEDS: AMLODIPINE 5 MG TABLET 2.5 MG PO (20:33)
[2023-08-28] MEDS: INSULIN GLARGINE 100 UNIT/ML 3ML PEN 20 UNIT SUBCUT (20:33)
[2023-08-29] MEDS: LACTATED RINGERS 1,000 ML 100 ML IV (01:03)
[2023-08-29] MEDS: OXYCODONE IR 10 MG TABLET PO (02:17)
[2023-08-29] MEDS: IBUPROFEN 400 MG TABLET PO ×2 (03:13→06:43)
[2023-08-29] MEDS: ACETAMINOPHEN 325 MG TABLET 650 MG PO (05:11)
[2023-08-29] MEDS: OXYCODONE IR 5 MG TABLET PO ×2 (05:41→09:20)
[2023-08-29 05:51] LABS: Hematocrit 27.7 % (36-46); Hemoglobin 9.3 g/dL (12.0-16.0)
--- NOTE | 2023-08-29 07:03 | PM.DS.1 ---
History of Present Illness History of Present Illness Date Patient Seen: 08/29/23 Time Patient Seen: 07:03 Chief complaint: Right TKA *OPB* Narrative: Operative Date/Time/Diagnoses Date of procedure: 08/28/23 Time of procedure: 08:00 Pre-op diagnosis: RIGHT KNEE OA Post-op diagnosis: same Procedure & Clinicians Procedure: Right total knee arthroplasty Same procedure as scheduled: Yes Indications: The patient has had progressively worsening right knee pain with radiographic changes consistent with arthritis. Non-operative management has failed and the patient has requested total knee replacement. The risks, benefits and alternatives to surgery were discussed with the patient prior to proceeding. Risks discussed included, but were not limited to, failure to relieve pain, stiffness, infection, nerve damage, deep venous thrombosis, pulmonary embolism, stroke, coma, heart attack, permanent paralysis and , as well as the potential need for eventual revision of the prosthetic. Surgeon: Leticia Knowles Gear Milling Machine Set Up Operator: Ap Dobson Anesthesia Type: General and Peripheral nerve block Operative Notes Findings: Severe right knee osteoarthritis, adequate stability Closure Type: primary Specimen(s): none sent Prosthetic devices, grafts, tissues, transplants, or devices: Knowles and nephew journey BC 2 size 5 femur, size 4 tibia, 35 by 7.5 patella, +10 poly Estimated Blood Loss (mL): 250 Blood products transfused: none Tourniquet time (min): 79 Discharge Providers Provider Discharge Date: 08/29/23 Primary care physician: Alannah Dior MD Consults: 08/27/23 07:10 Consult to Anesthesiology Routine Comment: Consulting Provider: Anesthesiologist Reason for consultation: Regional block for post operative pain control 08/28/23 11:07 Consult to Discharge Planning Routine Comment: Consult to Occupational Therapy Evaluate & Treat Comment: Physician Instructions: Evaluate and treat Consult to Physical Therapy Evaluate & Treat Comment: Physician Instructions: postop TKA protocol Discharge provider: Josie Newton PA-C Summary Hospital Course Discharge Diagnosis: Right knee osteoarthritis, s/p right total knee arthroplasty Hospital Course: Ms Coker's hospital course was unremarkable. On the morning of POD# 1, she was feeling well and wanted to go home. She was eating and voiding without difficulty and her pain was well-controlled with oral medication. She was evaluated by PT during her stay and they felt she was appropriate to discharge home. Exam Vital Signs (past 8 hours): Oxygen Delivery Method Room Air Oxygen Flow Rate 0 Narrative Exam Narrative: 5/5 strength in hip flexors, quadriceps, hamstrings, DF, PF, EHL on right. Sensation to light touch intact throughout RLE. Calf soft, compressible, tender. MARY functioning, ELIZABETH CDI. Objective Labs 08/29/23 05:26 Labs: Laboratory Results - last 24 hr 08/29/23 05:26 Hgb 9.3 L Hct 27.7 L PFSH Medical History (Updated 07/30/23 @ 15:48 by Alannah Dior MD) History of COVID-19 (2020) Osteoarthritis Endometrial cancer History of cardioversion Obesity, Class III, BMI 40-49.9 (morbid obesity) History of uterine cancer Anemia Chronic kidney disease Chronic knee pain Knee pain Obstructive sleep apnea of adult Atrial fibrillation Fatigue Hypertension Insomnia Type 2 diabetes mellitus Surgical History (Updated 08/29/23 @ 07:30 by Josie Newton PA-C) History of total left knee replacement (06/21/23) History of esophagogastroduodenoscopy (EGD) (08/10/22) Hx of colonoscopy (08/10/22) History of hysterectomy with oophorectomy Status post delivery Status post delivery Family History Father Age: 91 Prostate cancer Esophageal cancer Heart disease Hypertension Social History household members: spouse Smoking Status: Former smoker alcohol intake: current additional social history: Swimming at [employer] for exercise Discharge Assessment & Plan Assessment and Plan Assessment: Right knee osteoarthritis, s/p right total knee arthroplasty Plan of Treatment: Discharge home, multimodal pain control, VTE prophylaxis w/ ASA 81mg BID x 6 weeks, outpt PT, f/u in office in 2 weeks as scheduled. Discharge Plan Discharge Plan Patient Disposition: Home Discharge orders & Medications Discharge Orders: Discharge (Order); Ordered 08/29/23 Ordered By: Josie Newton Prescriptions: New oxycodone 5 mg Tablet 5 mg PO Q3H PRN (Reason: Pain, Moderate (4-6)) Qty: 40 0RF Continued (DME) pen needle, diabetic [BD Ultra-Fine Short Pen Needle] 31 gauge x 5/16 needle See Rx Instructions .Route Qty: 100 11RF Rx Instructions: BID lisinopril-hydrochlorothiazide 20-12.5 mg tablet 1 tab PO DAILY Qty: 90 1RF Rx Instructions: Take in a.m. amlodipine 2.5 mg tablet 2.5 mg PO BEDTIME Qty: 90 1RF metformin 500 mg tablet extended release 24hr 1,000 mg PO BID Qty: 360 1RF Toujeo Max U-300 SoloStar 300 unit/mL (3 mL) insulin pen 20 unit SUBCUT BEDTIME Qty: 3 0RF Rx Instructions: Pt must be seen in July for further refills tirzepatide 7.5 mg/0.5 mL pen injector 7.5 mg SUBCUT QWEEK Qty: 6 12RF acetaminophen 325 mg Tablet 650 mg PO Q6H Qty: 60 0RF aspirin 81 mg Tablet,Delayed Release (Dr/Ec) 81 mg PO BID Qty: 60 0RF Follow up/Referrals: Alannah Dior MD [Primary Care Provider] - Leticia Knowles MD [Physician] - 09/10/23 11:30 am (Follow up w/ Jessica Jimenez PA-C, at [facility] in [place].) Diet/Activity/Treatments Diet: Diet as Tolerated Activity: Weightbearing as tolerated. Walk frequently! Cold/Heat Therapy: Ice to knee as needed for pain. Skin/Wound/Dressing Care Report to your healthcare provider any signs of infection, such as:: chills, fever, night sweats, unusual drainage and unusual redness Dressing: May remove ELIZABETH wrap and shower on 08/31/2023. Leave dressing in place until follow up in office. In 5-7 days, battery light will start blinking red, at which point you can cut off the battery pack and dispose of it. No bathing or otherwise soaking incision. Call the office if the dressing becomes saturated inside. Visit Report/Discharge Packet Instructions: DI for Knee Replacement, DI for Prescription Opioid Use Stand Alone Forms: Patient Portal/API, Surgery Discharge Discharge Data Primary Care Provider: Alannah Dior Attending Provider: Leticia Knowles
[2023-08-29 08:07] VITALS: BP 108/51; PULSE 62; RESP 18; TEMP 37; O2SAT 99
--- NOTE | 2023-08-29 08:45 | PT.IPTN ---
Current Diagnoses Bilateral primary osteoarthritis of knee (08/28/23) Presence of unspecified artificial knee joint (08/28/23) Surgery Performed Operation Date: 08/28/23 07:45 Actual Procedures p Total Knee Arthroplasty - Robot(Right) - Leticia Knowles MD Physical Therapy Treatment Note M2 PT-IP Current Condition Start: 08/28/23 14:47 Freq: NEEDED Status: Discharge Protocol: Document 08/28/23 14:00 AB (Rec: 08/28/23 14:59 AB [id number]) Physical Therapy Current Condition Current Condition Evaluation Date 08/28/23 Treatment Diagnosis s/p R TKA; difficulty in walking Onset Date 08/28/23 M3 PT-IP Subjective Start: 08/28/23 14:47 Freq: NEEDED Status: Discharge Protocol: Document 08/29/23 08:45 AB (Rec: 08/29/23 13:04 AB [id number]) Subjective Physical Therapy Visit Type Type Treatment Note Visit Start Time 08:45 Visit Stop Time 09:20 [address] of [address]IVEWAY SEALER Visits 0 Physical Therapy Visit Comments Patient Comments agreeable to do PT Therapy Pain Assessment Pain When Pain Assessed At Rest Pain Present Pain Present Pain Reported Location Right Knee Intensity 5 Scale Used Numeric (0 - 10) Pain Management Techniques Apply Cold,Distraction, Elevation,Modification of Treatment,Re-positioning, Timing of Activity with Medications M4 PT-IP Mobility and Gait Start: 08/28/23 14:47 Freq: NEEDED Status: Discharge Protocol: Document 08/29/23 08:45 AB (Rec: 08/29/23 13:04 AB [id number]) PT-Transfer Assessment Sit to and From Stand Sit to and from Stand Contact Guard Assistance, Minimal Assistance,1 Person Assistance,Use of Upper Extremities Equipment Transfer Assistive Device Gait Belt,Front Wheeled Walker Orthotic/Prosthetic Devices or Brace: No Transfers Transfer Destination Chair Transfer Technique ambulated Transfer Ability Level of Assist Contact Guard Assistance,1 Person Assistance,Use of Upper Extremities Comments Mobility Comments pt sitting on chair and spouse in room. caregiver training conducted. educated spouse on how to use safety belt and how to assist pt. spouse was able to put safety belt on pt and assisted pt with sit to stand. spouse assisted pt with ambulated using FWW ~ 20 ft. stair climbing training. educated pt and spouse how to complete stairs using quad cane and R side grab bar. pt completed up/dwon 3 steps with quad cane and R side bar and spouse was able to assist pt with stair climbing needing min to mod A and cues. pt ambulated back to her room ~ 150 ft using W CGA. pt sat back on chair. positioned pt on the chair. call light and table placed within reach. Gait Assessment Gait Gait Assistance Required: Contact Guard Assist Distance (Feet) 150 Able to Maintain Weight Bearing Status Yes During Gait Assistive Devices Assistive Device Gait Belt,Front Wheeled Walker Orthotic/Prosthetic Devices or Brace: No Gait Deviations General Gait Pattern Antalgic,Decreased Stride Length,Decreased Feet Clearance Factors Limiting Gait Function Factors Limiting Gait Function Decreased Activity Tolerance, Decreased Strength,Limited Range of Motion,Pain,Poor Balance,Poor Safety Awareness Stair Climbing Assessment Evaluation Level of Assist On Stairs Minimal Assistance,Moderate Assistance Devices Stair Climbing Assistive Devices Small Base Quad Cane,Right Railing Technique/Endurance Stair Climbing Direction Ascend and Descend Stair Climbing Technique Step to Step Number of Steps Climbed 3 Stair Climbing Set # Repetitions (reps) 1 M5 PT-IP Objective Assessments Start: 08/28/23 14:47 Freq: NEEDED Status: Discharge Protocol: Document 08/28/23 14:00 AB (Rec: 08/28/23 14:59 AB [id number]) Orientation Orientation/Cognition Level of Alertness Alert Orientation Name,Place,Situation Language Function Ability No Deficits Noted Safety Awareness Decreased Safety Awareness Memory Description No Deficits Noted Gross Range of Motion Lower Extremity ROM Assessment Right Impaired Impairments R knee flexion: ~ 90 deg Strength Lower Extremity Strength Assessment Right Impaired Hip 3+/5 Knee 3+/5 Sensation Assessment Sensation Gross Sensation WNL Muscle Tone Muscle Tone WNL Yes M6 PT-IP Treatment Start: 08/28/23 14:47 Freq: NEEDED Status: Discharge Protocol: Document 08/29/23 08:45 AB (Rec: 08/29/23 13:04 AB [id number]) Physical Therapy Treatment Education Education Provided Safety M7 PT-IP Assessment and Plan Start: 08/28/23 14:47 Freq: NEEDED Status: Discharge Protocol: Document 08/29/23 08:45 AB (Rec: 08/29/23 13:04 AB [id number]) PT Summary Assessment and Plan Potential Rehabilitation Potential Good Summary Impairments Pain,ROM,Strength,Balance, Coordination,Sensation,Tone, Cognition,Bed Mobility, Transfers,Gait,Activity Tolerance Progress Towards Goals Slow Progress due to Activity Tolerance Assessment Summary caregiver training completed and spouse was able to assist pt with mobility. pt plans to go home today and spouse to assist. pt may go home when medically stable. Goals Bed Mobility Goal Independent Transfer Goal Independent,Front Wheeled Walker Gait Goal Independent,Front Wheel Walker Gait Distance 150 Other Goals improve transfers and ambulation using LRAD ~ 200 ft mod I up/down 3 steps R grab bar + quad cane SBA Days to Meet Goals 5 Frequency of Treatment Frequency Of Treatment Twice a Day Treatment Plan Physical Therapy Treatment Plan Bed Mobility Training,Transfer Training,Gait Training, Therapeutic Exercise,Balance Retraining,Post Op Education, Discharge Planning,Hot or Cold Pack,Neuromuscular Re-ed, Coordination Retraining,Manual Therapy Weight Bearing Status Weight Bearing Status Weight Bear as Tolerated Allowed Weight Bearing Amount (enter % RLE WBAT or #) (%) Recommendations To Nursing Amount of Assist Needed 1 Person Assist Discharge Recommendations PT Discharge Recommendations Home with Assistance, Outpatient PT Transportation Needs at Discharge Private Vehicle
[2023-08-29] MEDS: METFORMIN XR 500 MG TABLET 1000 MG PO (09:20)
[2023-08-29] MEDS: ASPIRIN EC 81 MG TABLET PO (09:20)
[2023-08-29] MEDS: DOCUSATE 100 MG CAPSULE PO (09:20)
--- NOTE | 2023-08-29 10:10 | PC.NURSE ---
Patient is A&OX4, VSS, afebrile on RA. She reports pain level is manageable at 5/10 with scheduled pain medications and prn 5 mg oxycodone as well as Ice. She is able to work with PT for caregiver training at 9 a.m. with and is cleared medically and physically for discharge home. She verbalizes understanding of discharge instructions, site care, medications, s/sx of infection as well as post-op appointment. She is escorted via w/ch by BANANA LOADER with all of her personal belongings including FWW for discharge today in private vehicle with to catch bina back home to [facility] at 10 a.m.
--- NOTE | 2023-08-29 10:45 | CM.DANOTE ---
Initial DCP Assessment Visit Note Reviewed EMR and team rounds for pt's medical status and updates. Pt was working with PT at the time of this visit, however this OVERNIGHT CAREGIVER was able to meet briefly with pt. She was being seen early due to needing to catch an earlier ferry back home. Spouse was available at bedside to transport her home. No DCP needs were identified for assistance during her hospital stay. Payor: [employer] Attending: Leticia Knowles Pt is a 67 year-old F independent at baseline, post-op day 1 from her R-total knee arthroplasty surgery. She is ambulating well with PT, has all necessary DME at home, and has already scheduled her OP PT appointments. She also has her OP Ortho f/u appt. in 2-weeks for wound check. Discharge Planning/Care Management Advanced directive, confirm from FAMILY Start: 08/28/23 11:17 Freq: Q24H Status: Discharge Protocol: Document 08/28/23 13:10 LW (Rec: 08/28/23 13:10 LW [id number]) Advance Directive, confirm on record Time 13:10 Person contacted patient Copy received No CM Discharge Assessment Start: 08/29/23 10:38 Freq: Status: Active Protocol: Document 08/29/23 10:38 DPL (Rec: 08/29/23 10:45 DPL [id number]) Discharge Planning Assessment Assigned Spine Nurse FRANKLIN Noyola Advance Directives? No Advance Directives on File No History Provided By Patient,Medical Record Has Patient been admitted in last 30 No days? Prior Living Arrangements House Household Members spouse Type of transporation used prior to Drives own vehicle admit Independent with ADL's Yes Is patient alert and oriented? Yes DME Already Rented / Owned Bath Bench,Elevated Toilet Seat,FWW / Walker,Cane,Bedside Commode Patient/Family Preference OP PT Therapy Discharge Plan Foster Care Transportation Arrangement family in POV and ferry Referrals Initiated None needed Whiteboard Updated in Patient Room with Yes name and ext. # of Spine Nurse Review Status In Process Please Provide Date Initial DC 08/29/23 Assessment Was Performed Pre-Anesthesia Assessment Start: 08/14/23 15:15 Freq: Status: Discharge Protocol: Document 08/14/23 15:15 CAB (Rec: 08/14/23 15:21 CAB [id number]) Pre-Anesthesia Assessment PAC Comment Pt is s/p LT TKA 2/15/24, declines phone assessment. She reports no changes to medical/medication history and has no questions with upcoming surgery. Chart review only Preferred Name [facility] Patient Information Reviewed Via Chart Review Primary Care Provider Alannah Dior Seen Specialist in Last 12 Months Yes Specialist Seen Oncologist,Opthamologist/ Arts Therapist,Orthopedist Primary Language Moldovan Preferred Language Moldovan Rn Admission Required No Height 162.56 cm Weight 119.748 kg Body Mass Index (BMI) 45.3 Hearing Ability Normal Visual Assist Magnifying Glass Dentition Type Teeth, Natural Present Barriers to Learning None Hx Anesthesia Reactions No: Pt denies DOMINGO, home study' positive per sleep visit @ [facility] 10/30/18 Hx Family Anesthesia Reaction No Hx Malignant Hyperthermia No Hx Blood Transfusions No Hx Blood Transfusion Reaction No Anesthesia Review Requested No Motorcoach Driver No alcohol intake current alcohol intake frequency a few times a month Smoking Status Former smoker how long ago did patient quit smoking Quit age 35 Substance Use Type marijuana Comment Edibles Pain Present Pain Reported Musculoskeletal Symptoms Abnormal Gait,Difficulty Walking,Joint Pain History of Falling (Recent or History of No ) Patient is completely paralyzed or No completely immobile Mental Status Oriented to own ability Is patient on oxygen? No Does patient have CHE/SOB No Hx Sleep Apnea Yes: Pt denies CPAP/BIPAP use not prescribed Currently Taking a Beta Judit No Hx Chest Pain No Hx SOB No Hx Syncope or Dizziness No Anti-Coagulant Therapy Yes: ASA 81mg unknown what instructions given to patient Has a Ward Nurse No Cardiac Testing No Hx Pacemaker/ICD No Pacemaker Rep Required? No Comment Hx of PAF, cardioversion Diet Type At Home Regular Dysphagia No Chronic UTI No Bladder Pattern Frequency Urinary Catheter Present No Hx Urinary Self Catheterization No Diabetes Yes HgbA1C 5.6 Date 07/30/23 Patient No Lactating No Hx Drug Resistant Organism No Presence of External or Internal Medical No Devices Received a COVID vaccine? Yes Received all doses? Yes Marital Status Lives With spouse Patient Discharge Plan Description Return Home Comment Pt lives on [facility] Do You Have Any Spiritual Beliefs That No May Affect Your HC Choices? Do You Have Any Cultural Practices That No May Affect Your HC Choices? Emergency Contact Name Irma (daughter) Emergency Contact Advance Directives? No Advance Directives on File No Power of Division Leader No
== END 2023-08-29 10:00 | disposition home or self-care (01) ==
LOC: OR 06:27 → AC 06:28
PROVIDERS: PCP Family Medicine; Referring Provider Orthopaedic Surgery; Visit Provider Orthopaedic Surgery
PROC: 0SRC0JZ Replacement of Right Knee Joint with Synthetic Substitute, Open Approach (ICD-10-PCS; CPT 27447; principal; 2023-08-28 07:45)
DX: M17.11 Unilateral primary osteoarthritis, right knee (principal)
CPT/HCPCS: 27447; 36415; 73560; 82962; 85014; 85018; 97161; 97530; C1776; C9290; J0171; J0690; J1100; J2250; J2405; J2704; J3010

== ENCOUNTER → 2023-12-04 11:23 | Outpatient (CLI) | payer MEDICARE, SELFPAY ==
[2023-08-28 11:11] VITALS: BMI 45.3
[2023-12-04 21:27] LABS: Creatinine Urine Random 280.17 mg/dL
[2023-12-04 21:32] LABS: Microalbumin Urine Random 3.3 mg/dL (0-1.6)
== END ==
PROVIDERS: PCP Family Medicine; Visit Provider Family Medicine
DX: E11.9 Type 2 diabetes mellitus without complications (principal)
CPT/HCPCS: 82043; 82570

== ENCOUNTER → 2024-01-17 16:31 | Outpatient (CLI) | payer MEDICARE, SELFPAY ==
[2023-08-28 11:11] VITALS: BMI 45.3
--- NOTE | 2024-01-17 16:32 | DI.MRI.S_ITS ---
PROCEDURE: MR LUMBAR SPINE WO CON INDICATIONS: SPINAL STENOSIS,LUMBAR REGION TECHNIQUE: Noncontrast sagittal T1 spin echo and T2 fast echo, sagittal STIR, and T2 fast spin echo through the lumbar spine. In cases with scoliosis, additional coronal T2 fast spin echo may be performed. COMPARISON: None. FINDINGS: Image quality: Oval focus of hypointensity on all sequences seen on lateral view within the subcutaneous fat posterior to L2 is present. This is suspected to be artifactual. Alignment and Curvature: There is multilevel trace retrolisthesis. Bone Marrow: Marrow is of normal overall signal. Multilevel minimal to mild reactive endplate changes are present. No acute vertebral body compression fractures. Spinal Cord: Conus medullaris terminates at the L1 level. Visualized cord demonstrates normal signal and size. Paraspinous Soft Tissues: No paravertebral masses. Discs: Multilevel overall moderate disc desiccation most severe at L4-5. T12-L1: No disc bulge, spinal stenosis or foraminal narrowing. L1-L2: Minimal disc bulge without spinal stenosis. Mild right foraminal narrowing. Facet and ligamentum flavum hypertrophy are present. L2-L3: Mild disc bulge with mild spinal stenosis. Zaqg-eq-rhmoluwa left and minimal right foraminal narrowing with facet and ligamentum flavum hypertrophy. L3-L4: Mild disc bulge with moderate to severe spinal stenosis. Moderate to severe bilateral foraminal narrowing with facet and ligamentum flavum hypertrophy. L4-L5: Mild disc bulge with right posterior paracentral protrusion. Moderate to severe left and severe right foraminal narrowing with facet and ligamentum flavum hypertrophy. [id number] spinal stenosis. L5-S1: Mild disc bulge with gmjg-hy-wcypxksf spinal stenosis. Severe bilateral foraminal narrowing with facet and ligamentum flavum hypertrophy. No significant nerve root impingement. IMPRESSION: Multilevel disc bulges. Multilevel spinal stenosis, most severe at L3-4 secondary to disc bulge with contributing effect of facet/ligamentum flavum arthropathy. Multilevel foraminal narrowing severe at L5-S1 secondary to facet/ligamentum flavum arthropathy. Dictated by: Agnieszka Jimenez M.D. on 01/18/2024 at 15:47 Approved by: Agnieszka Jimenez M.D. on 01/18/2024 at 15:57
== END ==
LOC: MRI 16:32
PROVIDERS: PCP Family Medicine; Referring Provider Orthopaedic Surgery; Visit Provider Orthopaedic Surgery
DX: M48.062 Spinal stenosis, lumbar region with neurogenic claudication (principal); M48.07 Spinal stenosis, lumbosacral region; M51.36 Other intervertebral disc degeneration, lumbar region; M51.37 Other intervertebral disc degeneration, lumbosacral region; M47.816 Spondylosis without myelopathy or radiculopathy, lumbar region; M47.817 Spondylosis without myelopathy or radiculopathy, lumbosacral region
CPT/HCPCS: 72148

== ENCOUNTER → 2024-05-21 11:04 | Outpatient (CLI) | payer MEDICARE, SELFPAY ==
[2023-08-28 11:11] VITALS: BMI 45.3
[2024-05-21 19:26] LABS: Add Manual Diff / Slide Review NO; Basophils Absolute Auto 100 /uL (0-100); Eosinophils Absolute Auto 100 /uL (0-450); Eosinophils Percent Auto 2.6 % (2-4); Hematocrit 31.2 % (36-46); Hemoglobin 10.5 g/dL (12.0-16.0); Lymphocytes Absolute Auto 1500 /uL (1100-4500); Lymphocytes Percent Auto 27.1 % (25-40); Mean Corpuscular HGB Conc 33.6 % (30-36); Mean Corpuscular Hemoglobin 32.6 PG (26-34); Mean Corpuscular Volume 97.1 fL (80-100); Monocytes Absolute Auto 400 /uL (0-900); Monocytes Percent Auto 8.3 % (3-14); Neutrophils Absolute Auto 3300 /uL (1500-7000); Platelet Count 351 X10^3/uL (150-400); Red Blood Cell Count 3.21 X10^6/uL (4.0-5.2); Red Cell Distribution Width 14.1 % (11.6-14.8); White Blood Cell Count 5.4 X10^3/uL (4.5-11.0)
[2024-05-21 19:29] LABS: Reticulocyte Count, Percent 1.5 % (1.1-2.6)
[2024-05-21 19:31] LABS: Alanine Aminotransferase 15 IU/L (<35); Albumin 3.9 g/dL (3.5-5.0); Albumin Globulin Ratio 1.5 (1.0-2.8); Alkaline Phosphatase 78 U/L (38-126); Aspartate Aminotransferase 21 IU/L (14-36); BUN Creatinine Ratio 20.6 (6-22); Bilirubin Total 0.4 mg/dL (0.2-1.3); Blood Urea Nitrogen 22 mg/dL (7-17); Calcium 9.5 mg/dL (8.4-10.2); Carbon Dioxide 27 mmol/L (22-32); Chloride 103 mmol/L (98-107); Cholesterol 253 mg/dL (140-199); Estimated Glomerular Filt Rate 57 mL/min (>60); Globulin 2.6 g/dL (1.7-4.1); Glucose 112 mg/dL (80-110); HDL Cholesterol 64 mg/dL (40-60); HEMOLYSIS < 15 (0-50); LDL Cholesterol Calculated 164 mg/dL (<100); Potassium 4.2 mmol/L (3.4-5.1); Sodium 135 mmol/L (137-145); Total Protein 6.5 g/dL (6.3-8.2); Triglycerides 123 mg/dL (35-150)
[2024-05-21 19:32] LABS: HEMOLYSIS < 15 (0-50); Iron 65 ug/dL (37-170)
[2024-05-21 19:46] LABS: Percent Iron Saturation 31 % (15-50); Total Iron Binding Capacity 212 ug/dL (265-497); Transferrin 199 mg/dL (206-381)
[2024-05-21 20:05] LABS: Ferritin 56 ng/mL (11-264)
[2024-05-21 20:06] LABS: Thyroid Stimulating Hormone < 0.015 uIU/mL (0.47-4.68)
[2024-05-21 20:37] LABS: Folate > 20.0 ng/mL (2.76-20.0); Vitamin B12 > 1000 pg/mL (239-931)
[2024-05-22 17:13] LABS: Hep C Virus Ab w/Reflex Quant NEGATIVE s/c (NEGATIVE)
== END ==
PROVIDERS: PCP Family Medicine; Visit Provider Family Medicine
DX: E11.69 Type 2 diabetes mellitus with other specified complication (principal); E78.5 Hyperlipidemia, unspecified; I10 Essential (primary) hypertension; D64.9 Anemia, unspecified; Z11.59 Encounter for screening for other viral diseases
CPT/HCPCS: 80053; 80061; 82525; 82607; 82728; 82746; 82784; 82985; 83540; 83550; 83883; 84155; 84165; 84443; 84630; 85025; 85045; 86334; 86803

== ENCOUNTER → 2024-08-18 10:46 | Outpatient (CLI) | payer MEDICARE, SELFPAY ==
[2023-08-28 11:11] VITALS: BMI 45.3
[2024-08-18 11:53] LABS: Hematocrit 30.7 % (36-46); Hemoglobin 10.3 g/dL (12.0-16.0); Mean Corpuscular HGB Conc 33.6 % (30-36); Mean Corpuscular Hemoglobin 32.5 PG (26-34); Mean Corpuscular Volume 96.7 fL (80-100); Platelet Count 324 X10^3/uL (150-400); Red Blood Cell Count 3.18 X10^6/uL (4.0-5.2); Red Cell Distribution Width 13.8 % (11.6-14.8); White Blood Cell Count 6.8 X10^3/uL (4.5-11.0)
[2024-08-18 12:31] LABS: Neutrophils Absolute Manual 5100 /uL (3000-5900); RBC Morphology Normal Morphology; Total Cells Counted 100
[2024-08-18 12:54] LABS: TSH w/ Reflex to FT4 1.18 uIU/mL (0.47-4.68)
== END ==
PROVIDERS: PCP Family Medicine; Referring Provider Family Medicine; Visit Provider Family Medicine
DX: R79.89 Other specified abnormal findings of blood chemistry (principal); D64.9 Anemia, unspecified
CPT/HCPCS: 36415; 84443; 85025

== ENCOUNTER → 2024-12-02 13:40 | Outpatient (CLI) | payer MEDICARE, SELFPAY ==
[2023-08-28 11:11] VITALS: BMI 45.3
[2024-12-02 19:42] LABS: Add Manual Diff / Slide Review NO; Hematocrit 33.2 % (36-46); Hemoglobin 11.1 g/dL (12.0-16.0); Lymphocytes Absolute Auto 1600 /uL (1100-4500); Mean Corpuscular HGB Conc 33.3 % (30-36); Mean Corpuscular Hemoglobin 32.0 PG (26-34); Mean Corpuscular Volume 96.1 fL (80-100); Platelet Count 373 X10^3/uL (150-400)
[2024-12-02 19:45] LABS: Reticulocyte Count, Percent 1.0 % (1.1-2.6)
[2024-12-02 20:01] LABS: Hemoglobin A1C% w Est Avg Glu 5.3 % (4.0-6.0)
[2024-12-02 20:05] LABS: Blood Urea Nitrogen 27 mg/dL (7-17); Calcium 9.9 mg/dL (8.4-10.2); Carbon Dioxide 23 mmol/L (22-32); Chloride 102 mmol/L (98-107); Estimated Glomerular Filt Rate 56 mL/min (>60); Glucose 96 mg/dL (70-99); HEMOLYSIS < 15 (0-50); Potassium 4.9 mmol/L (3.4-5.1); Sodium 135 mmol/L (137-145)
[2024-12-02 20:11] LABS: Vitamin D 25 Hydroxy (D3) 52.0 ng/mL (30.0-100.0)
[2024-12-05 21:40] LABS: ANA Screen, IFA Negative (.)
== END ==
PROVIDERS: PCP Family Medicine; Visit Provider Family Medicine
DX: D64.9 Anemia, unspecified (principal); E11.22 Type 2 diabetes mellitus with diabetic chronic kidney disease; Z79.4 Long term (current) use of insulin; N18.9 Chronic kidney disease, unspecified; I12.9 Hypertensive chronic kidney disease with stage 1 through stage 4 chronic kidney disease, or unspecified chronic kidney disease
CPT/HCPCS: 80048; 82306; 82985; 83036; 85025; 85045; 85651; 86038; 86140

== ENCOUNTER → 2025-02-24 10:34 | Outpatient (CLI) | payer MEDICARE, SELFPAY ==
[2023-08-28 11:11] VITALS: BMI 45.3
[2025-02-24 19:17] LABS: Add Manual Diff / Slide Review NO; Hematocrit 31.5 % (36-46); Hemoglobin 10.6 g/dL (12.0-16.0); Lymphocytes Absolute Auto 1400 /uL (1100-4500); Mean Corpuscular HGB Conc 33.5 % (30-36); Mean Corpuscular Hemoglobin 31.8 PG (26-34); Mean Corpuscular Volume 94.9 fL (80-100); Platelet Count 342 X10^3/uL (150-400)
[2025-02-24 19:26] LABS: Hemoglobin A1C% w Est Avg Glu 5.8 % (4.0-6.0)
[2025-02-24 19:29] LABS: Cholesterol 216 mg/dL (140-199); HDL Cholesterol 72 mg/dL (40-60); Triglycerides 151 mg/dL (35-150)
[2025-02-24 21:08] LABS: Microalbumi Creatinin Ratio Ur 10.0 ug/mg CR (<30)
== END ==
PROVIDERS: PCP Family Medicine; Visit Provider Family Medicine
DX: N18.31 Chronic kidney disease, stage 3a (principal); E11.69 Type 2 diabetes mellitus with other specified complication; E78.5 Hyperlipidemia, unspecified; I10 Essential (primary) hypertension; Z68.37 Body mass index [BMI] 37.0-37.9, adult; E11.22 Type 2 diabetes mellitus with diabetic chronic kidney disease; Z79.4 Long term (current) use of insulin; D64.9 Anemia, unspecified
CPT/HCPCS: 80061; 82043; 82570; 83036; 85025